=== PATIENT | female | born 1990 | race Caucasian/White ===

== ENCOUNTER → 2017-08-04 | Outpatient (CLI) | payer OTHER, SELFPAY | PROVIDERS: Family Provider Physician Assistant; Visit Provider Orthopaedic Surgery | DX: M25.511 Pain in right shoulder (principal) | CPT/HCPCS: 73030 ==

== ENCOUNTER → 2017-08-18 12:52 | Outpatient (CLI) | payer OTHER, SELFPAY ==
--- NOTE | 2017-08-18 13:02 | IR_ITS ---
MR shoulder RT w con, IR arthrogram shoulder RT HISTORY: Persistent right shoulder pain with limited range of motion ITS.REASON: PAIN IN RT SHOULDER ORDERING PHYSICIAN: Tang Floyd MD PATIENT AGE: 27 years COMPARISON: None TECHNIQUE: Following obtaining informed consent the patient was placed supine on the fluoroscopy table. Using standard technique under aseptic conditions with 1% buffered lidocaine 22-gauge spinal needle was inserted into the right shoulder joint and mixture of gadolinium, Isovue, and normal saline and percent lidocaine injected into the shoulder joint. There was a small amount contrast extravasation into the surrounding soft tissues. The patient tolerated procedure well without evidence of complication. Images were then obtained. Following this, patient was taken to the MRI suite where routine MRI arthrogram images were obtained. FINDINGS: There is no evidence of rotator cuff tear. There is thickening of the supraspinatus and infraspinatus tendons with increased T2 signal consistent with tendinopathy/tendinosis. No evidence of labral tear. The bicipital tendon is in place. No obvious glenohumeral ligament tear. No fracture or bone bruise. IMPRESSION: 1. No evidence of rotator cuff tear or labral tear. 2. Prominent thickening of the supraspinatus and infraspinatus tendons with increased T1 and T2 signal consistent with severe tendinopathy/tendinosis
== END ==
PROVIDERS: Family Provider Physician Assistant; PCP Physician Assistant; Visit Provider Orthopaedic Surgery
DX: M25.511 Pain in right shoulder (principal)
CPT/HCPCS: 73040; 73222; Q9967

== ENCOUNTER → 2017-10-19 15:12 | Outpatient (REF) | payer OTHER, SELFPAY ==
[2017-10-19 18:53] LABS: Basophils # 0.1 K/mm3 (0-0.2); Basophils % 0.7 % (0.1-2.0); Eosinophils # 0.3 K/mm3 (0.0-0.4); Hematocrit 41.8 % (37.0-47.0); Hemoglobin 13.5 g/dL (12.2-16.2); Lymphocytes # 2.1 K/mm3 (0.7-4.5); Lymphocytes % 35.1 K/mm3 (10-50); Mean Corpuscular HGB Conc 32.3 g/dL (31.8-35.4); Mean Corpuscular Hemoglobin 32.1 pg (27.0-31.2); Mean Corpuscular Volume 99.5 fl (81-99); Mean Platelet Volume 8.5 fl (7.4-10.4); Monocytes # 0.3 K/mm3 (0.1-1.0); Monocytes % 5.6 % (1.7-9.3); Neutrophils # 3.3 K/mm3 (1.8-7.8); Neutrophils % 53.5 % (37.0-80.0); Platelet Count 253 K/mm3 (142-424); White Blood Count 6.1 K/mm3 (4.8-10.8)
[2017-10-19 19:29] LABS: Alanine Aminotransferase 25 U/L (12-78); Albumin Level 4.1 gm/dL (3.4-5.0); Albumin/Globulin Ratio 1.2 (1.1-1.8); Alkaline Phosphatase 64 U/L (46-116); Anion Gap 11.4 mEq/L (5-15); Aspartate Amino Transferase 13 U/L (15-37); Bilirubin,Total 0.2 mg/dL (0.2-1.0); Blood Urea Nitrogen 15 mg/dL (7-18); Calcium 8.6 mg/dL (8.5-10.1); Carbon Dioxide 28 mmol/L (21.0-32.0); Chloride 103 mmol/L (98-107); Chol/HDL Ratio 2.4 (1-3.5); Cholesterol 167 mg/dL (140-200); Creatinine,Serum 0.72 mg/dL (0.55-1.02); Estimated Glomerular Filt Rate 99 ml/min (>60); GFR (African American) 119 ML/MIN (>60); Globulin 3.3 gm/dl (1.3-3.2); Glucose 75 mg/dL (74-106); HDL Cholesterol 69 mg/dL (29-89); LDL Cholesterol 89 mg/dL (0-130); Potassium 4.4 mmoL/L (3.5-5.1); Sodium 138 mmol/L (136-145); T4 (Thyroxine) 7.8 ug/dl (4.7-13.3); Thyroid Stimulating Hormone 2.32 uIU/ml (0.358-3.740); Total Protein,Serum 7.4 gm/dL (6.4-8.2); Triglycerides 44 mg/dL (30-200); VLDL Cholesterol 9 mg/dL (0-40)
[2017-10-19 20:12] LABS: HCG Qualitative, Serum Negative (Negative)
[2017-10-21 19:22] LABS: Vitamin D 25 Hydroxy 17.1 ng/mL (30.0-100.0)
== END ==
LOC: LAB 15:12
PROVIDERS: Visit Provider Physician Assistant
DX: R53.83 Other fatigue (principal)
CPT/HCPCS: 80053; 80061; 82652; 84436; 84443; 84703; 85025

== ENCOUNTER 2017-10-26 08:00 | Outpatient (RCR) | payer OTHER, SELFPAY | END 2017-10-26 08:05 | disposition home or self-care (01) | LOC: PT 08:00 | PROVIDERS: Family Provider Physician Assistant; PCP Physician Assistant; Visit Provider Orthopaedic Surgery | DX: M75.41 Impingement syndrome of right shoulder (principal); M67.911 Unspecified disorder of synovium and tendon, right shoulder | CPT/HCPCS: 97010; 97014; 97016; 97033; 97035; 97110; G0283 ==

== ENCOUNTER 2018-03-09 10:30 | Outpatient (RCR) | payer OTHER, SELFPAY ==
--- NOTE | 2018-02-07 09:51 | HMH.RHREAS ---
Rehab Reassessment Rehab OP Re-assessment Start: 02/07/18 09:36 Freq: Status: Active Protocol: Document 02/07/18 09:36 VASILE (Rec: 02/07/18 09:51 VASILE [id number]) Electronically Signed By Jack Sharif, PT 02/07/18 09:36 Rehab Re-assessment Subjective Subjective Pt reports 45% improvement since start of care. Objective Objective Notes AROM: WNL except for IRr 60 degrees MMT: -WNL except for R ER 4/5 -6/10 current, 7/10 at worst over past week, 5/10 at best over past week -Neuro WNL Assessment Progress Assessment Progressing as Expected Assessment Notes Pt has been seen for 5 visits to date. Attendance to PT visits limited secondary to time constraints with occupation. Pt experiences decreased symptoms when consistent with PT visits. Full AROM except or IR, full MMT except for ER. Pain continues to be most limiting factor. Patient goals met STG's Goals Not Met LTG's Plan Plan Continue with POC Frequency of Therapy 2x/week Duration of therapy 4weeks Time and Billing Re-Eval Time 15 Re-Eval Billing Units 1 PHYSICIAN CERTIFICATION: I certify the specified therapy services for Koby Zhang are required, authorized, and reviewed every 30 days.
== END 2018-03-09 10:31 | disposition home or self-care (01) ==
LOC: PT 10:30
PROVIDERS: Family Provider Physician Assistant; PCP Physician Assistant; Visit Provider Orthopaedic Surgery
DX: M75.41 Impingement syndrome of right shoulder (principal)
CPT/HCPCS: 97010; 97014; 97016; 97033; 97035; 97110; 97140; 97163; 97164; G0283

== ENCOUNTER → 2018-03-15 13:11 | Outpatient (REF) | payer OTHER, SELFPAY ==
[2018-03-15 18:47] LABS: Basophils % 0.8 % (0.1-2.0); Eosinophils # 0.2 K/mm3 (0.0-0.4); Eosinophils % 4.4 % (0.1-12.0); Hematocrit 41.3 % (37.0-47.0); Hemoglobin 13.3 g/dL (12.2-16.2); Lymphocytes % 30.2 K/mm3 (10-50); Mean Corpuscular HGB Conc 32.2 g/dL (31.8-35.4); Mean Corpuscular Hemoglobin 30.4 pg (27.0-31.2); Mean Corpuscular Volume 94.2 fl (81-99); Mean Platelet Volume 8.3 fl (7.4-10.4); Monocytes # 0.2 K/mm3 (0.1-1.0); Monocytes % 6.7 % (1.7-9.3); Neutrophils % 57.9 % (37.0-80.0); Platelet Count 210 K/mm3 (142-424); Red Blood Count 4.39 M/mm3 (4.20-5.40); Red Cell Distribution Width 12.6 % (11.5-17.5); White Blood Count 3.4 K/mm3 (4.8-10.8)
[2018-03-15 19:28] LABS: Alanine Aminotransferase 26 U/L (12-78); Albumin Level 4.1 gm/dL (3.4-5.0); Albumin/Globulin Ratio 1.2 (1.1-1.8); Alkaline Phosphatase 85 U/L (46-116); Anion Gap 14.2 mEq/L (5-15); Aspartate Amino Transferase 17 U/L (15-37); Bilirubin,Total 0.4 mg/dL (0.2-1.0); Blood Urea Nitrogen 11 mg/dL (7-18); Calcium 8.8 mg/dL (8.5-10.1); Carbon Dioxide 26 mmol/L (21.0-32.0); Chloride 105 mmol/L (98-107); Chol/HDL Ratio 3.7 (1-3.5); Cholesterol 235 mg/dL (140-200); Creatinine,Serum 0.89 mg/dL (0.55-1.02); Estimated Glomerular Filt Rate 77 ml/min (>60); GFR (African American) 94 ML/MIN (>60); Globulin 3.4 gm/dl (1.3-3.2); Glucose 58 mg/dL (74-106); HDL Cholesterol 63 mg/dL (29-89); LDL Cholesterol 164 mg/dL (0-130); Potassium 4.2 mmoL/L (3.5-5.1); Sodium 141 mmol/L (136-145); T4 (Thyroxine) 9.1 ug/dl (4.7-13.3); Thyroid Stimulating Hormone 2.71 uIU/ml (0.358-3.740); Total Protein,Serum 7.5 gm/dL (6.4-8.2); Triglycerides 39 mg/dL (30-200); VLDL Cholesterol 8 mg/dL (0-40)
[2018-03-15 19:43] LABS: C-Reactive Protein < 0.2 mg/L (0.0-0.9)
[2018-03-15 20:10] LABS: Erythrocyte Sedimentation Rate 13 mm/hr (0-20)
[2018-03-17 08:30] LABS: Hep A Ab, IgM Negative (Negative); Hepatitis B Core Antibody IgM Negative (Negative); Hepatitis B Surface Antigen Negative (Negative); RA Latex Turbid. <10.0 IU/mL (0.0-13.9)
[2018-03-17 14:21] LABS: Anti-Jo-1 <0.2 AI (0.0-0.9); Anti-Smith Antibody <0.2 AI (0.0-0.9); Antichromatin Antibodies <0.2 AI (0.0-0.9); Antiscleroderma-70 Antibodies <0.2 AI (0.0-0.9); RNP Antibodies 0.3 AI (0.0-0.9); Sjogren's Anti-SS-A <0.2 AI (0.0-0.9); Sjogren's Anti-SS-B <0.2 AI (0.0-0.9)
[2018-03-17 18:15] LABS: Hepatitis C Antibody 0.1 s/co ratio (0.0-0.9); Vitamin D 25 Hydroxy 46.8 ng/mL (30.0-100.0)
[2018-03-17 18:16] LABS: Anti-Centromere B Antibodies <0.2 AI (0.0-0.9); Anti-DNA (DS) Ab Qn <1 IU/mL (0-9); HIV Screen 4th Generation wRfx Non Reactive (Non Reactive)
[2018-03-19 20:32] LABS: Anti-Cyclic Citrullinated Pept 6 units (0-19)
== END ==
LOC: LAB 13:11
PROVIDERS: Visit Provider Physician Assistant
DX: D89.89 Other specified disorders involving the immune mechanism, not elsewhere classified (principal); R87.619 Unspecified abnormal cytological findings in specimens from cervix uteri; R53.83 Other fatigue; E55.9 Vitamin D deficiency, unspecified
CPT/HCPCS: 80053; 80061; 80074; 82652; 84436; 84443; 85025; 85651; 86140; 86200; 86225; 86235; 86431; 86703; G0432

== ENCOUNTER 2020-05-19 19:09 | Emergency (ER) | payer OTHER, SELFPAY ==
[2020-05-19 19:25] VITALS: BP 125/83; PULSE 55; RESP 14; TEMP 36.9; O2SAT 100; BMI 32.1
[2020-05-19 19:31] LABS: UTC Strep Screen (Rapid) Positive (Negative)
--- NOTE | 2020-05-19 19:42 | HMH.EDUTC ---
[facility] [place]ression: Strep throat Disposition: Home, Self-Care Condition on Discharge: Good Instructions: Strep Throat, DI for Strep Throat Additional Instructions: Drink plenty of fluids. Take tylenol or ibuprofen for pain or fever. Take the medications as directed. Follow up with your regular doctor. GO TO THE ER FOR ANY WORSENING SYMPTOMS Throw your tooth brush away and get a new one. Prescriptions: Ondansetron [Zofran 4mg ODT] 4 mg PO Q8HP PRN #10 tab.rapdis PRN Reason: Nausea [facility] Azithromycin [Z-Augustine 250mg Tab*] 250 mg PO UD DOSE PK #6 tab Transmission Status[facility] Referrals: Tatianna Almodovar PA [Primary Care Provider] - Forms: Work/School Release Time of Disposition: 19:46 Medical Decision Making - Medical Records Medical records reviewed: No: I reviewed the patient's medical records. - Gonzalo Inquiry Pt receiving controlled substance: No Vital Signs: 05/19/20 19:25 05/19/20 20:00 Temperature 98.5 F 98.5 F Temperature Source Oral Pulse Rate 55 L Pulse Rate [Right Brachial] 55 L Respiratory Rate 14 14 Blood Pressure 125/83 Blood Pressure [Right Arm] 125/83 Blood Pressure Mean [Right Arm] 97 Blood Pressure Source [Right Arm] Automatic Cuff Blood Pressure Position [Right Arm] Sitting 02 Sat by Pulse Oximetry 100 Oxygen Delivery Method Room Air - Lab Data Lab Results 05/19/20 19:29: Strep Scn Rapid Clinic Positive A Orders (Tests/Meds): ED MEDICATIONS Discontinued Medications Generic Name Dose Route Start Last Admin Trade Name Freq PRN Reason Stop Dose Admin Azithromycin 500 mg 05/19/20 19:42 05/19/20 19:51 Azithromycin 250mg Tablet PO 05/19/20 19:43 500 mg ONCE ONE Administration Protocol Ibuprofen 800 mg 05/19/20 19:47 05/19/20 19:51 Ibuprofen 400 Mg Tablet PO 05/19/20 19:48 800 mg ONCE ONE Administration [facility] [place] - General Stated complaint: SORE THROAT RIGHT SIDE Time Seen by Provider: 05/19/20 19:30 Mode of Arrival: Ambulatory Source of Information: Patient Limitations: No Limitations Description of Symptoms (Recalled from Triage Doc. by RN): PATIENT C/O SORE THROAT ON RIGHT SIDE X 2 DAYS HEENT Symptoms (Recalled from RN notes): Yes Resp Symptoms (Recalled from RN notes): No Skin Symptoms (Recalled from RN notes): No MS Symptoms (Recalled from RN notes): No Functional Status (Recalled from RN notes): WNL - History of Present Illness Provider Complaint: She c/o sore throat for the past 1 day. She also has had some chilling. - Related Data Home Medications Medication Instructions Recorded Confirmed albuterol sulfate 90 mcg/actuation 1 puff INHALATION Q6H 09/05/17 04/01/20 aerosol inhaler cetirizine 10 mg capsule 10 mg PO QDAY 09/05/17 04/01/20 fluticasone propionate 50 50 mcg INTRANASAL ONCE 09/05/17 04/01/20 mcg/actuation nasal spray,suspension mometasone-formoterol HFA 200 2 puff INHALATION BID 09/05/17 04/01/20 mcg-5 mcg/actuation aerosol inhaler montelukast 10 mg tablet 10 mg PO QHS 09/05/17 04/01/20 omalizumab 150 mg subcutaneous 150 mg SQ Q4W 12/11/18 04/01/20 solution beclomethasone dipropionate 80 INHALATION 04/01/20 04/01/20 mcg/actuation HFA breath activated aerosol Previous Rx's Medication Instructions Recorded prednisone 20 mg tablet 20 mg PO BID #10 tab 10/29/19 triamcinolone acetonide 0.025 % 1 applic TOPICAL BID #80 g 03/04/20 topical cream cholecalciferol (vitamin D3) 25 25 mcg PO DAILY #90 cap 03/07/20 mcg (1,000 unit) capsule ergocalciferol (vitamin D2) 1,250 1,250 mcg PO DAILY #14 cap 03/07/20 mcg (50,000 unit) capsule phentermine 37.5 mg tablet 37.5 mg PO DAILY #30 tab 05/14/20 Azithromycin [Z-Augustine 250mg Tab*] 250 mg PO UD DOSE PK #6 tab 05/19/20 Ondansetron [Zofran 4mg ODT] 4 mg PO Q8HP PRN #10 tab.rapdis 05/19/20 Allergies
[2020-05-19 20:00] VITALS: BP 125/83; PULSE 55; RESP 14; TEMP 36.9; O2SAT 100
== END 2020-05-19 20:01 | disposition home or self-care (01) ==
PROVIDERS: Emergency Provider Nurse Practitioner Family; PCP Physician Assistant
DX: J02.0 Streptococcal pharyngitis (principal); J45.909 Unspecified asthma, uncomplicated
CPT/HCPCS: 87880; 99201

== ENCOUNTER 2020-08-21 11:22 | Emergency (ER) | payer OTHER, SELFPAY ==
[2020-08-21 11:23] VITALS: BP 113/77; PULSE 82; RESP 14; TEMP 36.2; O2SAT 99; BMI 34.3
--- NOTE | 2020-08-21 12:30 | HMH.EDUTC ---
[facility] [place]: Exposure to COVID-19 virus Disposition: Home, Self-Care Condition on Discharge: Good Instructions: Preventing the Spread of Coronavirus Discharge Instructions Additional Instructions: *Monitor Temp, Over the counter Motrin or Tylenol as directed/as needed Tylenol every 4 hours and Motrin every 6 hours (as long as your family doctor has told you that you can take it) for fever or pain. and straight to ER if unable to lower temp less than 101.0 after medication given Follow up IMMEDIATELY for new or worsening symptoms or no Noticeable improvement over the next 48-72 hours. 911 for difficulty breathing or swallowing You were tested for today for COVID19 your test result should be back in the next 24-48 hours, you may call to the [facility] to see if your test results are back in the next 48 hours [phone] [facility] hours are 9am-9pm You was given a handout with instructions for Self Quarantine and Self isolation for while you wait on test results and what to do if they are positive If you are positive the Health Dept will be contacting you also Referrals: Tatianna Almodovar PA [Primary Care Provider] - Time of Disposition: 12:31 Medical Decision Making - Medical Records Medical records reviewed: No: I reviewed the patient's medical records. - Gonzalo Inquiry Pt receiving controlled substance: No Vital Signs: 08/21/20 11:23 08/21/20 12:33 Temperature 97.1 F L 97.1 F L Temperature Source Oral Oral Pulse Rate 82 Pulse Rate [Right] 82 Respiratory Rate 14 14 Blood Pressure 113/77 Blood Pressure [Right Arm] 113/77 Blood Pressure Mean [Right Arm] 89 02 Sat by Pulse Oximetry 99 [facility] [place] - General Stated complaint: covid exposure Time Seen by Provider: 08/21/20 12:30 Description of Symptoms (Recalled from Triage Doc. by RN): pt request COVID test pt has no symptoms HEENT Symptoms (Recalled from RN notes): No Resp Symptoms (Recalled from RN notes): No Skin Symptoms (Recalled from RN notes): No MS Symptoms (Recalled from RN notes): No Functional Status (Recalled from RN notes): wnl - History of Present Illness Provider Complaint: Her grandmother was diagnosed with covid-19 yesterday. She denies any symptoms, but she would like to be tested for covid. - Related Data Home Medications Medication Instructions Recorded Confirmed albuterol sulfate 90 mcg/actuation 1 puff INHALATION Q6H 09/05/17 08/19/20 aerosol inhaler cetirizine 10 mg capsule 10 mg PO QDAY 09/05/17 08/19/20 fluticasone propionate 50 50 mcg INTRANASAL ONCE 09/05/17 08/19/20 mcg/actuation nasal spray,suspension mometasone-formoterol HFA 200 2 puff INHALATION BID 09/05/17 08/19/20 mcg-5 mcg/actuation aerosol inhaler montelukast 10 mg tablet 10 mg PO QHS 09/05/17 08/19/20 omalizumab 150 mg subcutaneous 150 mg SQ Q4W 12/11/18 08/19/20 solution beclomethasone dipropionate 80 INHALATION 04/01/20 08/19/20 mcg/actuation HFA breath activated aerosol Previous Rx's Medication Instructions Recorded triamcinolone acetonide 0.025 % 1 applic TOPICAL BID #80 g 03/04/20 topical cream cholecalciferol (vitamin D3) 25 25 mcg PO DAILY #90 cap 03/07/20 mcg (1,000 unit) capsule Ondansetron [Zofran 4mg ODT] 4 mg PO Q8HP PRN #10 tab.rapdis 05/19/20 ergocalciferol (vitamin D2) 1,250 See Rx Instructions .ROUTE 06/06/20 mcg (50,000 unit) capsule .COMPLEX #14 cap fluconazole 150 mg tablet 150 mg PO Q3D 0 Days #2 tab 06/30/20 phentermine 37.5 mg tablet 37.5 mg PO DAILY #30 tab 07/30/20 meloxicam 7.5 mg tablet 7.5 mg PO DAILY #90 tab 08/11/20 methylprednisolone 4 mg tablets in 4 mg PO PER PKG DIR 6 Days #21 tab 08/11/20 a dose pack Allergies Allergy/AdvReac Type Severity Reaction Status Date / Time No Known Allergies Allergy Verified 08/21/20 12:05 - Worker's Comp Is this a Worker's Comp case?: No Is this an H Worker's Comp?: No Is this a [place] Worker's Comp?: No [facility] Histo
[2020-08-21 12:33] VITALS: BP 113/77; PULSE 82; RESP 14; TEMP 36.2
== END 2020-08-21 12:35 | disposition home or self-care (01) ==
PROVIDERS: Emergency Provider Nurse Practitioner Family; PCP Physician Assistant
DX: Z20.822 Contact with and (suspected) exposure to COVID-19 (principal); J45.909 Unspecified asthma, uncomplicated
CPT/HCPCS: 99202; G0463; U0003

== ENCOUNTER → 2021-01-19 15:05 | Outpatient (CLI) | payer OTHER, SELFPAY ==
[2021-01-19 16:59] LABS: Alanine Aminotransferase 18 U/L (12-78); Albumin Level 4.2 g/dl (3.5-5.0); Albumin/Globulin Ratio 1.5 (1.1-1.8); Alkaline Phosphatase 75 U/L (38-126); Anion Gap 11.4 mEq/L (5-15); Aspartate Amino Transferase 27 U/L (14-36); Basophils % 0.5 % (0.1-2.0); Bilirubin,Total 0.5 mg/dl (0.2-1.3); Blood Urea Nitrogen 15 mg/dl (7-17); Calcium 8.9 mg/dl (8.4-10.2); Carbon Dioxide 25 mmol/L (22.0-30.0); Chloride 107 mmol/L (98-107); Chol/HDL Ratio 2.8 (1-3.5); Cholesterol 194 mg/dl (140-200); Eosinophils # 0.2 K/mm3 (0.0-0.4); Eosinophils % 2.5 % (0.1-12.0); Estimated Glomerular Filt Rate 100 ml/min (>60); GFR (African American) 121 ML/MIN (>60); Globulin 2.8 g/dL (1.3-3.2); Glucose 85 mg/dl (74-100); HDL Cholesterol 69 mg/dl (40-60); Hematocrit 38.8 % (37.0-47.0); Hemoglobin 12.8 g/dL (12.2-16.2); Lymphocytes # 1.5 K/mm3 (0.7-4.5); Lymphocytes % 21.3 % (10-50); Mean Corpuscular HGB Conc 33.1 g/dL (31.8-35.4); Mean Corpuscular Hemoglobin 31.1 pg (27.0-31.2); Mean Corpuscular Volume 94.2 fl (81-99); Mean Platelet Volume 8.4 fl (7.4-10.4); Monocytes # 0.4 K/mm3 (0.1-1.0); Monocytes % 5.4 % (1.7-9.3); Neutrophils # 5.1 K/mm3 (1.8-7.8); Neutrophils % 70.3 % (37.0-80.0); Platelet Count 246 K/mm3 (142-424); Potassium 4.4 mmoL/L (3.5-5.1); Red Blood Count 4.12 M/mm3 (4.20-5.40); Red Cell Distribution Width 12.6 % (11.5-17.5); Sodium 139 mmol/L (136-145); Triglycerides 51 mg/dl (30-150); VLDL Cholesterol 10 mg/dL (0-40); White Blood Count 7.2 K/mm3 (4.8-10.8)
[2021-01-19 17:10] LABS: Direct LDL Cholesterol 108.85 mg/dL (100-129)
[2021-01-19 17:16] LABS: Free T4 (Free Thyroxine) 1.32 ng/dl (0.78-2.19)
[2021-01-19 17:30] LABS: Thyroid Stimulating Hormone 2.11 uIU/mL (0.465-4.68)
[2021-01-19 18:28] LABS: 25-OH Vitamin D, Total 28.7 ng/mL (30-100)
[2021-01-19 18:30] LABS: Amphetamine/Metha Screen,Urine Negative ng/ml (<1000); Barbiturates Screen,Urine Negative ng/ml (<200)
[2021-01-19 18:31] LABS: Benzodiazepines Screen,Urine Negative ng/ml (<200)
[2021-01-19 18:33] LABS: Cannabinoid Screen,Urine Negative ng/ml (<50)
[2021-01-19 18:34] LABS: Cocaine Screen,Urine Negative ng/ml (<300)
[2021-01-19 18:35] LABS: Methadone Screen,Urine Negative ng/ml (<300); Opiate Screen,Urine Negative ng/ml (<300)
[2021-01-19 18:36] LABS: Phencyclidine Screen,Urine Negative ng/ml (<25)
[2021-01-21 09:46] LABS: HIV Screen 4th Generation wRfx Non Reactive (Non Reactive); Hep A Ab, IgM Negative (Negative); Hepatitis B Core Antibody IgM Negative (Negative); Hepatitis B Surface Antigen Negative (Negative); Hepatitis C Antibody <0.1 s/co ratio (0.0-0.9)
[2021-01-21 12:11] LABS: Rapid Plasma Reagin Ab Titer Non Reactive (NonRea<1:1)
[2021-01-21 21:55] LABS: Neisseria gonorrhoeae, NAA Negative (Negative)
== END ==
PROVIDERS: Visit Provider Physician Assistant
DX: Z00.00 Encounter for general adult medical examination without abnormal findings (principal); D89.89 Other specified disorders involving the immune mechanism, not elsewhere classified; J45.909 Unspecified asthma, uncomplicated; M06.9 Rheumatoid arthritis, unspecified; E55.9 Vitamin D deficiency, unspecified; R53.83 Other fatigue; R68.89 Other general symptoms and signs; Z20.2 Contact with and (suspected) exposure to infections with a predominantly sexual mode of transmission; Z79.899 Other long term (current) drug therapy
CPT/HCPCS: 80053; 80061; 80074; 80305; 82306; 84439; 84443; 85025; 86592; 86703; 87491; 87591; G0432

== ENCOUNTER → 2021-02-23 14:54 | Outpatient (CLI) | payer OTHER, SELFPAY ==
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
== END ==
PROVIDERS: PCP Physician Assistant; Visit Provider Physician Assistant
DX: M54.2 Cervicalgia (principal)
CPT/HCPCS: 72052

== ENCOUNTER → 2021-03-10 12:56 | Outpatient (CLI) | payer OTHER, SELFPAY ==
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
== END ==
PROVIDERS: PCP Physician Assistant; Visit Provider Physician Assistant
DX: M54.2 Cervicalgia (principal); V89.2XXA Person injured in unspecified motor-vehicle accident, traffic, initial encounter
CPT/HCPCS: 72141; 76376

== ENCOUNTER 2021-04-14 11:37 | Emergency (ER) | payer OTHER, SELFPAY ==
[2021-04-14 12:50] VITALS: BP 138/74; PULSE 91; RESP 21; TEMP 36.8; O2SAT 100; BMI 36.8
--- NOTE | 2021-04-14 13:35 | HMH.EDUTC ---
[facility] [place] Clinical Impression: Sinusitis Qualifiers: Sinusitis location: unspecified location Chronicity: unspecified Qualified Code(s): J32.9 - Chronic sinusitis, unspecified Disposition: Home, Self-Care Condition on Discharge: Good Instructions: Sinusitis, DI for Sinusitis, Amoxicillin and Clavulanic Acid Additional Instructions: *Monitor Temp, Over the counter Motrin or Tylenol as directed/as needed Tylenol every 4 hours and Motrin every 6 hours (as long as your family doctor has told you that you can take it) for fever or pain. and straight to ER if unable to lower temp less than 101.0 after medication given *Warm salt water gargles may help to soothe the throat *Throat Lozenges *Warm fluids like tea with honey may help to soothe the throat *Sleep elevated *Humidifier/Vaporizer Take medication as prescribed Follow up IMMEDIATELY for new or worsening symptoms or no Noticeable improvement over the next 48-72 hours. 911 for difficulty breathing or swallowing You were tested for today for COVID19 your test result should be back in the next 24-48 hours, You was given [facility]out [facility] your results should be available on there later today if you do not have internet or trouble accessing you can call at [phone] You was given a handout with instructions for Self Quarantine and Self isolation for while you wait on test results and what to do if they are positive If you are positive the Health Dept will be contacting you also Make sure to take your Vitamins Vit. C Vit D and Zinc if you can take them Prescriptions: Amoxicillin/Potassium Clav [Augmentin 875-125 Tablet] 1 tab PO Q12H 10 Days #20 tab Transmission Status: Pending to [facility] Referrals: Tatianna Almodovar PA [Primary Care Provider] - As needed Forms: Work/School Release Time of Disposition: 13:50 Medical Decision Making - Gonzalo Inquiry Pt receiving controlled substance: No Gonzalo was queried for this patient: No Vital Signs: 04/14/21 12:50 04/14/21 14:14 Temperature 98.3 F 98.3 F Temperature Source Oral Pulse Rate 91 H Pulse Rate [Right Brachial] 91 H Respiratory Rate 21 21 Blood Pressure 138/74 Blood Pressure [Right Arm] 138/74 Blood Pressure Mean [Right Arm] 95 Blood Pressure Source [Right Arm] Automatic Cuff Blood Pressure Position [Right Arm] Sitting 02 Sat by Pulse Oximetry 100 Oxygen Delivery Method Room Air - Lab Data Lab Results 04/14/21 13:38: Tst Clinic Negative Orders (Tests/Meds): ED MEDICATIONS Discontinued Medications Generic Name Dose Route Start Last Admin Trade Name Rachel PRN Reason Stop Dose Admin Methylprednisolone Sodium Succinate 125 mg 04/14/21 13:47 04/14/21 14:07 Methylprednisolone Sod Succ 125mg Vial IM 04/14/21 13:48 125 mg ONCE ONE Administration ORDERS Category Date Time Status Covid-19 Nasal PCR ([facility]) Routine Lab 04/14/21 12:58 Received Medical Decision Narrative: Patient states that she has taken solumedrol injection in the past without reactions or complications [facility] [place] - General Stated complaint: sore throat, cough, soa, headache, runny nose Time Seen by Provider: 04/14/21 13:35 Mode of Arrival: Ambulatory Source of Information: Patient Limitations: No Limitations Description of Symptoms (Recalled from Triage Doc. by RN): PATIENT C/O SINUS PRESSURE, WATERY EYES, AND SOA SINCE TUESDAY HEENT Symptoms (Recalled from RN notes): Yes Resp Symptoms (Recalled from RN notes): No Skin Symptoms (Recalled from RN notes): No MS Symptoms (Recalled from RN notes): No Functional Status (Recalled from RN notes): WNL - History of Present Illness Provider Complaint: Patient state that she thinks she has a sinus infection State that she started about a week or so ago with sinus pain and pressure that has come and gone State that about 3-4 days ago it started getting worse and now having pressure like feeling be
[2021-04-14 14:00] LABS: UTC Pregnancy Test, Urine Negative (Negative)
[2021-04-14 14:14] VITALS: BP 138/74; PULSE 91; RESP 21; TEMP 36.8; O2SAT 100
== END 2021-04-14 14:18 | disposition home or self-care (01) ==
PROVIDERS: Emergency Provider Nurse Practitioner; PCP Physician Assistant
DX: J32.9 Chronic sinusitis, unspecified (principal); J45.909 Unspecified asthma, uncomplicated
CPT/HCPCS: 81025; 96372; 99202; G0463; U0003

== ENCOUNTER → 2021-07-31 13:59 | Outpatient (CLI) | payer OTHER, SELFPAY ==
--- NOTE | 2021-07-31 13:59 | US_ITS ---
PROCEDURE: US KIDNEY CLINICAL INDICATION: Right-sided flank pain COMPARISON: No exams were available for comparison FINDINGS: The right kidney is [id number]. No hydronephrosis, cortical thinning, or renal mass or perinephric fluid collection is evident. The left kidney is [id number]. No hydronephrosis, cortical thinning, or renal mass or perinephric fluid collection is evident. IMPRESSION: Unremarkable bilateral renal ultrasound Dictated by: Toni Allen MD 07/31/2021 17:27 Toni Allen MD in [place] 07/31/2021 17:27
== END ==
PROVIDERS: PCP Physician Assistant; Visit Provider Physician Assistant
DX: R10.9 Unspecified abdominal pain (principal)
CPT/HCPCS: 76770

== ENCOUNTER → 2022-07-26 11:01 | Outpatient (CLI) | payer OTHER, SELFPAY ==
[2022-07-27 05:09] LABS: HSV 1 IgG, Type Spec <0.91 index (0.00-0.90); HSV 2 IgG, Type Spec 5.16 index (0.00-0.90)
[2022-07-27 13:25] LABS: Rapid Plasma Reagin Ab Titer Non Reactive (NonRea<1:1)
[2022-07-31 23:03] LABS: Hep A Ab, IgM NEGATIVE; Hepatitis B Core Antibody IgM NEGATIVE; Hepatitis B Surface Antigen NEGATIVE; Hepatitis C Antibody <0.1
[2022-07-31 23:04] LABS: HIV Screen 4th Generation wRfx NON REACTIVE
== END ==
PROVIDERS: PCP Physician Assistant; Visit Provider Nurse Practitioner Obstetrics & Gynecology
DX: Z72.51 High risk heterosexual behavior (principal); Z11.4 Encounter for screening for human immunodeficiency virus [HIV]
CPT/HCPCS: 36415; 80074; 86592; 86695; 86703; 86790; G0432

== ENCOUNTER → 2023-04-07 15:52 | Outpatient (CLI) | payer BC, SELFPAY ==
[2023-04-07 13:41] LABS: Basophils % 0.3 % (0.1-2.0); Eosinophils # 0.1 K/mm3 (0.0-0.4); Eosinophils % 1.5 % (0.1-12.0); Hematocrit 40.4 % (37.0-47.0); Hemoglobin 12.8 g/dL (12.2-16.2); Lymphocytes # 1.6 K/mm3 (0.7-4.5); Lymphocytes % 27.9 % (10-50); Mean Corpuscular HGB Conc 31.6 g/dL (31.8-35.4); Mean Corpuscular Hemoglobin 30.3 pg (27.0-31.2); Mean Platelet Volume 8.2 fl (7.4-10.4); Monocytes # 0.4 K/mm3 (0.1-1.0); Monocytes % 6.4 % (1.7-9.3); Neutrophils # 3.8 K/mm3 (1.8-7.8); Neutrophils % 63.9 % (37.0-80.0); Platelet Count 283 K/mm3 (142-424); Red Blood Count 4.21 M/mm3 (4.20-5.40); Red Cell Distribution Width 13.7 % (11.5-17.5); White Blood Count 5.9 K/mm3 (4.8-10.8)
[2023-04-07 14:07] LABS: Erythrocyte Sedimentation Rate 20 mm/hr (0-20)
[2023-04-07 16:16] LABS: 25-OH Vitamin D, Total 37.2 ng/mL (30-100)
[2023-04-07 20:04] LABS: Alanine Aminotransferase 27 U/L (12-78); Albumin Level 4.6 g/dl (3.5-5.0); Albumin/Globulin Ratio 1.4 (1.1-1.8); Alkaline Phosphatase 93 U/L (38-126); Anion Gap 17.1 mEq/L (5-15); Aspartate Amino Transferase 31 U/L (14-36); Bilirubin,Total 0.2 mg/dl (0.2-1.3); Blood Urea Nitrogen 17 mg/dl (7-17); Calcium 8.8 mg/dl (8.4-10.2); Carbon Dioxide 22 mmol/L (22.0-30.0); Chloride 107 mmol/L (98-107); Chol/HDL Ratio 3.2 (1-3.5); Cholesterol 225 mg/dl (140-200); Estimated Glomerular Filt Rate 84 ml/min (>60); GFR (African American) 101 ML/MIN (>60); Globulin 3.4 g/dL (1.3-3.2); Glucose 86 mg/dl (74-100); HDL Cholesterol 71 mg/dl (40-60); Potassium 4.1 mmoL/L (3.5-5.1); Sodium 142 mmol/L (136-145); Triglycerides 110 mg/dl (30-150); VLDL Cholesterol 22 mg/dL (0-40)
[2023-04-07 20:15] LABS: C-Reactive Protein 2.3 mg/L (0-4); Direct LDL Cholesterol 115.58 mg/dL (100-129)
[2023-04-07 20:35] LABS: Thyroid Stimulating Hormone 1.84 uIU/mL (0.465-4.68)
[2023-04-09 10:44] LABS: RA Latex Turbid. <10.0 IU/mL (<14.0)
[2023-04-09 12:15] LABS: Anti-Cyclic Citrullinated Pept 5 units (0-19)
[2023-04-11 21:27] LABS: Anti-Centromere B Antibodies <0.2 AI (0.0-0.9); Anti-DNA (DS) Ab Qn <1 IU/mL (0-9); Anti-Jo-1 <0.2 AI (0.0-0.9); Anti-Smith Antibody <0.2 AI (0.0-0.9); Antichromatin Antibodies <0.2 AI (0.0-0.9); Antiscleroderma-70 Antibodies <0.2 AI (0.0-0.9); RNP Antibodies 0.2 AI (0.0-0.9); Sjogren's Anti-SS-A <0.2 AI (0.0-0.9); Sjogren's Anti-SS-B <0.2 AI (0.0-0.9)
== END ==
LOC: LAB.DROPOF 15:52
PROVIDERS: PCP Physician Assistant; Visit Provider Physician Assistant
DX: D89.89 Other specified disorders involving the immune mechanism, not elsewhere classified (principal); E55.9 Vitamin D deficiency, unspecified
CPT/HCPCS: 80053; 80061; 82306; 84443; 85025; 85651; 86140; 86200; 86225; 86235; 86431

== ENCOUNTER 2024-01-04 10:46 | Outpatient (CLI) | payer BC, SELFPAY ==
--- NOTE | 2024-01-04 10:51 | XR_ITS ---
FINAL REPORT CLINICAL HISTORY: right ankle cyst COMPARISON: None FINDINGS: RIGHT ANKLE 3 views of the right ankle were obtained. There is no acute fracture or dislocation. The mortise is intact. Visualized joint spaces are normally aligned. Soft tissues are unremarkable. IMPRESSION: No acute bony abnormality. Reviewed, Interpreted and Dictated by Buck Alfaro MD Transcribed by Judith Navarro Authenticated and [facility]
== END 2024-01-04 23:59 | disposition home or self-care (01) ==
LOC: RAD 10:47
PROVIDERS: PCP Physician Assistant; Visit Provider Physician Assistant
DX: M25.571 Pain in right ankle and joints of right foot (principal); M85.671 Other cyst of bone, right ankle and foot
CPT/HCPCS: 73610

== ENCOUNTER 2024-02-01 08:47 | Outpatient (CLI) | payer BC, SELFPAY | END 2024-02-01 23:59 | disposition home or self-care (01) | LOC: RAD 08:51 | PROVIDERS: PCP Physician Assistant; Visit Provider Physician Assistant | DX: D48.7 Neoplasm of uncertain behavior of other specified sites (principal) ==

== ENCOUNTER 2024-02-17 07:23 | Outpatient (CLI) | payer BC, SELFPAY ==
--- NOTE | 2024-02-17 07:23 | MR_ITS ---
FINAL REPORT CLINICAL HISTORY: right ankle cyst, lateral sided ankle knot with swelling. put marker on spot FINDINGS: Multiplanar MR imaging of the right ankle was performed without contrast. There is mild bone marrow edema in the posterior calcaneal tuberosity. No osteochondral lesion is identified. The ligaments are intact without evidence of injury. There is distal Achilles peritendinitis. There is a small amount of fluid in the retrocalcaneal bursa, may represent bursitis. There is mild posterior tibial and peroneus longus tenosynovitis. No significant joint effusion is seen. The musculature is intact. There is no evidence of soft tissue mass or cyst. IMPRESSION: No soft tissue mass or cyst. Possible retrocalcaneal bursitis. Tenosynovitis as above. Reviewed, Interpreted and Dictated by Keagan Sharma III, MD Transcribed by Janny Cosme Authenticated and [facility]
== END 2024-02-17 23:59 | disposition home or self-care (01) ==
LOC: RAD 07:23
PROVIDERS: PCP Physician Assistant; Visit Provider Physician Assistant
DX: M85.671 Other cyst of bone, right ankle and foot (principal)
CPT/HCPCS: 73721

== ENCOUNTER 2024-09-27 15:30 | Outpatient (CLI) | payer BC, SELFPAY ==
[2024-09-27 18:02] LABS: HIV Combo POSITIVE (Negative)
[2024-09-27 18:12] LABS: Hepatitis C Ab Qual. W/ RFX NEGATIVE (Negative)
[2024-09-27 19:16] LABS: HIV Combo Retest POSITIVE (Negative)
[2024-09-27 22:17] LABS: RPR W/RFX Titers Nonreactive (Nonreactive)
[2024-09-28 07:24] LABS: Hepatitis B Surface Antigen Negative (Negative); Rubella Antibodies, IgG 3.61 index (Immune >0.99)
[2024-09-29 08:12] LABS: HIV Screen 4th Generation wRfx Non Reactive (Non Reactive)
[2024-09-29 09:23] LABS: Neisseria gonorrhoeae, NAA Negative (Negative)
== END 2024-09-27 23:59 | disposition home or self-care (01) ==
LOC: LAB 15:32
PROVIDERS: PCP Physician Assistant; Visit Provider Nurse Practitioner Obstetrics & Gynecology
DX: Z34.01 Encounter for supervision of normal first pregnancy, first trimester (principal); Z3A.01 Less than 8 weeks gestation of pregnancy; Z86.19 Personal history of other infectious and parasitic diseases
CPT/HCPCS: 36415; 86592; 86703; 86762; 86803; 87340; 87389; 87491; 87591; G0432

== ENCOUNTER 2024-12-26 12:38 | Outpatient (CLI) | payer BC, SELFPAY ==
--- NOTE | 2024-12-26 13:00 | US_ITS ---
PROCEDURE: US OB /MATERNAL DETAIL CLINICAL INDICATION: schedule in 5 weeks, 20 week anatomy scan COMPARISON: No exams were available for comparison FINDINGS: Transabdominal sonographic images of the pelvis were obtained. From her established due date she is 20 weeks 5 days. Single viable intrauterine gestation. Cephalic position. Initially the placenta appeared low lying and would suggest repeat scan at 28 weeks Placenta: Anteriorplacenta grade 1. There is an average amount of fluid. The cervix appears satisfactory. Closed and measuring 4.51 cm in length. Complete survey performed and was unremarkable on the submitted images as in PACS. No discrete anomalies identified on survey imaging by technologist. Active fetus. Three-vessel cord with satisfactory umbilical cord insertion. 4- chamber heart noted. Situs, aortic arch, LVOT, RVOT, three-vessel view appear normal. Survey of brain & ventricles Unremarkable. Cerebellum, thalamus, choroid plexus, cisterna magna appear normal. Face and neck survey unremarkable. Profile, nasion, lips and nose appeared normal. Diaphragm and chest views unremarkable. Abdomen: Both kidneys noted and unremarkable. Stomach and bladder noted and satisfactory. Spine: Survey of the spine satisfactory with no anomalies identified nor imaged. Cervical, thoracic, lower spine appear normal. Both arms and legs noted. Amniotic Fluid: Adequate. MVP 3.44 cm Measurements: Average ultrasound age 21weeks 0 days. Estimated due date by ultrasound age 0905/08/2025. Estimated weight 403g BPD = 21weeks 0 days HC = 20weeks 4days AC = 21weeks 5days FL = 20weeks 5days Growth Percentile= 69 Heart Rate = 140bpm Cerebellum = 19weeks 2days Humerus = 20weeks 6days HC/AC is 1.08 FL/BPD is 0.69 FL/AC is 0.2 IMPRESSION: 1. Viable fetus in the cephalic presentation with an anterior low-lying placenta grade 1. 2. The fluid is within normal limits with an MVP 3.44 cm. 3. Anatomical scan is normal but the exam was difficult due to position. Suggest repeat scan at 28 weeks to look at the placenta and anatomy. 4. biometry is consistent with the dates. Dictated by: Viktor Jackman MD 12/26/2024 14:11 Viktor Jackman MD in [place] 12/26/2024 14:11
== END 2024-12-26 23:59 | disposition home or self-care (01) ==
LOC: RAD 12:39
PROVIDERS: PCP Physician Assistant; Visit Provider Nurse Practitioner Obstetrics & Gynecology
DX: Z34.92 Encounter for supervision of normal pregnancy, unspecified, second trimester (principal); Z3A.20 20 weeks gestation of pregnancy
CPT/HCPCS: 76811

== ENCOUNTER 2025-02-14 12:30 | Outpatient (CLI) | payer BC, SELFPAY ==
--- OUTSIDE RECORDS SUMMARY | 2025-02-14 12:34 | XMS_ITS | Encounter Summary ---
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 Name Role Phone Unavailable Primary Care Provider Unavailabl e Reason for Referral * Consultation (Routine) - New Request Specialty Diagnoses / Procedures Referred By Contac t Referred To Contact Behavioral Health / Psychiatry Diagnoses MDD (major depressive disorder), recurrent episode, mild (HCC) Susan Zhang APRN [id number] [place] [address] Phone: tel: Referral ID Status Reason Start Date Expiration Date Visits Requested Visits Authorized [id number] New Request Specialty Services Required 05/10/2024 05/10/2025 1 1 Encounter Details Date Type Department Care Team (Late st Contact Info) Description 05/10/2024 Outside Orders [facility] Central Scheduling [address] [place] [address] Susan Zhang APRN [id number] [place] [address] MDD (major depressive disorder), recurrent episode, mild (HCC) (Primary Dx) Social History Tobacco Use Types Packs/Day Years Used Date Smoking Tobacco: Never Assessed Food Insecurity Answer Date Recorded Food run out past 12 months Not on file 04/16 Food did not last past 12 months Not on file 05/10/2024 Employment Answer Date Recorded Help finding and keeping a job Not on file 0 05/10/2024 Family and Community Support Answer Yannick e Recorded Help with Day to Day Activities Not on file 05/10/2024 Feeling Lonely or Isolated Not on file 05/10 Educational Attainment Answer Date Robert rded Speak language other than [place] at home Not on file 05/10/2024 Want help with school or training Not on file 05/10/2024 Substance Use Answer Date Recorded Used prescription meds for non-medical reasons N ot on file 05/10/2024 Used illegal drugs past 12 months Not on file 05/10/2024 Comments Unknown Sex and Gender Information Value Date Recorded Sex Assigned at Not on file Legal Sex Female 8:46 AM CDT Gender Identity Not on file Sexual Orientation Not on file documented as of this encounter Plan of Treatment Scheduled Referrals Name Type Priority Associated Diagnoses Order Schedule Ambulatory referral to Behavioral Health Outpatient Referral Routine MDD (major depressive disorder), recurrent episode, mild (HCC) Expected: 05/10/2024, Expires: 05/10/2025 documented as of this encounter Visit Diagnoses Diagnosis MDD (major depressive disorder), recurrent episode, mild (HCC)- Primary documented in this encounter
--- OUTSIDE RECORDS SUMMARY | 2025-02-14 12:34 | XMS_ITS | Clinical Summary ---
Author Organization [facility] ([place], [place], [place], [place]) Address [address] [place] [address] Care Team Providers Care Puppet Maker Name Role Phone Unavailable Primary Care Provider Unavailabl e Social History Tobacco Use Types Packs/Day Years [...] Date Robert rded Speak language other than Tajik at home Not on file 05/10/2024 Want [...] on file Sexual Orientation Not on file Plan of Treatment Health Maintenance Due Date Last Done Comments Tobacco Cessation Counseling and Screening (12+) 2004 HIV Screening 2007 Hepatitis C Screening 2010 DTAP/TDAP/TD VACCINES (1 - Tdap) 2011 Pap Smear 2013 COVID-19 VACCINE (2023-2 5 season) 2024 07/10/2021, 12/19/2020, 11/21/2020 Influenza Vaccine (#1) 2025 Pneumococcal Vaccine: 0-49 Years Aged Out No longer eligible b ased on patient's age to complete this topic
--- OUTSIDE RECORDS SUMMARY | 2025-02-14 12:34 | XMS_ITS | Encounter Summary ---
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
--- OUTSIDE RECORDS SUMMARY | 2025-02-14 12:34 | XMS_ITS | Referral Summary ---
Author Organization [employer] ([place], [place], [place], [place]) Address [address] [place] [address] Care Team Providers Care Monument Mason Name Role Phone Unavailable Primary Care Provider [...] Date Robert rded Speak language other than Croatian at home Not on file 05/10/2024 Want [...] Orientation Not on file Plan of Treatment Not on file
--- OUTSIDE RECORDS SUMMARY | 2025-02-14 12:34 | XMS_ITS | Encounter Summary ---
Author Organization [employer] ([place], [place], [place], [place]) Address [address] [place] [address] Care Team Providers Care Ob Gyn Name Role Phone Unavailable Primary Care Provider Unavailabl e Encounter Details Date Type Department Care Team (Late st Contact Info) Description 05/10/2024 Outside Orders [facility] Central Scheduling [address] [place] [address] Susan Zhang APRN [address] [place] [address] MDD (major depressive disorder), recurrent [...] Date Robert rded Speak language other than Telugu at home Not on file 05/10/2024 Want [...]
--- OUTSIDE RECORDS SUMMARY | 2025-02-14 12:34 | XMS_ITS | Clinical Summary ---
Author Organization Healthcare Address [address] [place] [address] Care Team Providers Care Heat Plant Specialist Name Role Phone Tatianna Almodovar Primary Care Provider [phone] Family History Medical History Relation Name Comments Conversions - Other Other 1 Arterios clerosis Bipolar depression Other 2 Asthma Other 3 Bipolar disorder Other 4 Cardiac disorder Other 5 Cataracts Other 6 COPD Other 7 Coronary artery disease Other 8 RODY disease Other 9 Glaucoma Other 10 Hypertension Other 11 Kidney disease Other 12 Other cancer Other 13 Breast cancer Other 14 Prostate cancer Other 15 Conversions - Other Other 16 malignan t neoplasm of skin Migraines Other 17 Osteoarthritis Other 18 Osteogenesis imperfecta Other 19 Rheum arthritis Other 20 Relation Name Status Comments Other 1 Other 2 Other 3 Other 4 Other 5 Other 6 Other 7 Other 8 Other 9 Other 10 Other 11 Other 12 Other 13 Other 14 Other 15 Other 16 Other 17 Other 18 Other 19 Other 20 Social History Tobacco Use Types Packs/Day Years Used Date Smoking Tobacco: Never Alcohol Use Standard Drinks/Week Comments No 0 (1 standard drink = 0.6 oz pur e alcohol) Comments Unknown Sex and Gender Information Value Date Recorded Sex Assigned at Not on file Legal Sex Female 6:48 PM EDT Gender Identity Not on file Sexual Orientation Not on file Last Filed Vital Signs Vital Sign Reading Time Taken Comments Blood Pressure 101/50 09/25/2018 8:34 AM EST Pulse 64 09/25/2018 8:34 AM EST Temperature 36.8 C (98.2 F) 09/25/2018 8:34 AM EST Respiratory Rate 14 09/25/2018 8:34 AM EST Oxygen Saturation - - Inhaled Oxygen Concentration - - Weight 85.5 kg (188 lb 7.9 oz) 09/25/2018 8:34 A M EST Height 162.6 cm (5' 4 ) 09/25/2018 8:34 AM EST Body Mass Index 32.35 09/25/2018 8:34 AM EST Plan of Treatment Health Maintenance Due Date Last Done Comments [facility]-Depression Screening 1992 [facility]-Infant/Child/Adol SDOH Screenings 1992 [facility]-Varicella Vaccines (1 of 2 - 13+ 2-dose series) 2005 HPV Vaccines (1 - 3-dose series) 2007 [facility]- SDOH Screenings 2010 [facility]-Adult SDOH Screenings 2010 [facility]-DTaP,Tdap,and Td Vaccines (1 - Tdap) 2011 [facility]-Hepatitis B Vaccines (1 of 3 - 19+ 3-dose series) 2011 [facility]-Pap Smear 2013 [facility]-Cervical Cancer Screening 2022 UKY-HPV/Cotest 2022 [id number] Vaccine ( season) 2024 07/10/2021, 12/19/2020, 11/21/2020 UKY-Influenza Vaccine (#1) 2025 [facility]Y-Zoster Vaccines (1 of 2) 2042 [facility]-HIV Screening Completed 07/05/2024 [facility]-Hepatitis C Screening Completed 07/05/2024 [facility]Y-HIB Vaccines Aged Out No longer e ligible based on patient's age to complete this topic [facility]Y-Hepatitis A Vaccines Aged Out No longer eligible based on patient's age to complete this topic UKY-IPV Vaccines Aged Out No longer e ligible based on patient's age to complete this topic UKY-Pneumococcal Vaccine: Pediatrics (0 to 5 Years) and At-Risk Patients (6 to 49 Years) Aged Out No longer eligible b ased on patient's age to complete this topic UKY-Rotavirus Vaccines Aged Out No lo nger eligible based on patient's age to complete this topic Procedures Procedure Name Priority Date/Time Associated Diagnosis Comments HEPATITIS C ANTIBODY W/REFLEX TO HCV QUANT PCR Routine 07/05/2024 10:30 AM EST Encounter for general adult medical examination w/o abnormal findings HIV 1/2 ANTIBODY/ANTIGEN SCREEN WITH REFLEX TO HIV I/II DIFFERENTIATION Routine 07/05/2024 10:30 AM EST Encounter for general adult medical examination w/o abnormal findings from Last 3 Months or Most Recently Relevant to Health Maintenance Results * HIV 1 & 2 Antibody/Antigen Screen (07/05/2024 10:30 AM EST) HIV 1 & 2 Antibody/Antigen Screen Non Reactive Non Reactive 07/05/2024 4:37 PM EST [facility] Comment:Screening for HIV 1 & 2 antibodies, and P24 antigen is NONREACTIVE. No confirmatory testing is required. Blood Venous blood specimen / Unknown Venipuncture / Unknown 07/05/2024 10:30 AM EST 07/05/2024 10:30 AM EST Tatianna VELOZ LAB BLOOD ORDERABLES Final Resu lt Performing Organization Address [facility] Co de Phone Number [facility] [address] [place] [address] * Hepatitis C antibody (07/05/2024 10:30 AM EST) Hepatitis C Antibody Negative Negative 07/05/2024 5:05 PM EST [facility] Blood Venous blood specimen / Unknown Venipuncture / Unknown 07/05/2024 10:30 AM EST 07/05/2024 10:30 AM EST us Tatianna VELOZ LAB BLOOD ORDERABLES Final Resu lt Performing Organization Address City/[facility] Co de Phone Number [facility] [address] [place] [address] from Last 3 Months or Most Recently Relevant to Health Maintenance Insurance ANTHEM Care Teams Heat Plant Specialist Relationship Specialty Start Date End Date Tatianna Almodovar PA [address] [place] [address] PCP - General 12/26/20
[2025-02-14 14:41] LABS: Glucose 1 Hour 133 mg/dL (74-100)
[2025-02-14 14:57] LABS: Hematocrit 32.4 % (37.0-47.0); Hemoglobin 11.1 g/dL (12.2-16.2); Immature Granulocytes % 1.0 %; Mean Corpuscular HGB Conc 34.3 g/dL (31.8-35.4); Mean Corpuscular Hemoglobin 32.5 pg (27.0-31.2); Mean Corpuscular Volume 94.7 fl (81-99); Nucleated Red Blood Cells % 0 %; Platelet Count 283 K/mm3 (142-424); Red Blood Count 3.42 M/mm3 (4.20-5.40); Red Cell Distribution Width-SD 46.8 fL; White Blood Count 10.0 K/mm3 (4.8-10.8)
[2025-02-15 08:53] LABS: RPR W/RFX Titers Nonreactive (Nonreactive)
== END 2025-02-14 23:59 | disposition home or self-care (01) ==
LOC: LAB 12:32
PROVIDERS: PCP Physician Assistant; Visit Provider Obstetrics & Gynecology
DX: Z34.82 Encounter for supervision of other normal pregnancy, second trimester (principal)
CPT/HCPCS: 36415; 82947; 85025; 86592

== ENCOUNTER 2025-03-04 10:47 | Outpatient (CLI) | payer BC, SELFPAY ==
--- OUTSIDE RECORDS SUMMARY | 2025-03-05 12:00 | XMS_ITS | Encounter Summary ---
Author Organization [employer] ([place], [place], [place], [place]) Address [address] [place] [address] Care Team Providers Care Beef Grader Name Role Phone Unavailable Primary Care Provider Unavailabl e Encounter Details Date Type Department Care Team (Late st Contact Info) Description 05/10/2024 Outside Orders [facility] Central Scheduling [address] [place] [address] Susan Zhang APRN [address] [place] [address] MDD (major depressive disorder), recurrent [...] Date Robert rded Speak language other than Omani at home Not on file 05/10/2024 Want [...]
--- OUTSIDE RECORDS SUMMARY | 2025-03-05 12:00 | XMS_ITS | Referral Summary ---
Author Organization [employer] ([place], [place], [place], [place]) Address [address] [place] [address] Care Team Providers Care Controller Coal Or Ore Name Role Phone Unavailable Primary Care Provider [...] Date Robert rded Speak language other than Czech at home Not on file 05/10/2024 Want [...]
--- OUTSIDE RECORDS SUMMARY | 2025-03-05 12:00 | XMS_ITS | Clinical Summary ---
Author Organization Healthcare Address [address] [place] [address] Care Team Providers Care Documentation Clerk Name Role Phone Tatianna Almodovar Primary Care Provider Family History Medical History Relation Name Comments [...] Date Last Done Comments [facility]Y-Depression Screening 1992 [facility]-/Child/Adol SDOH Screenings 1992 [facility]-Varicella Vaccines (1 of 2 - 13+ 2-dose series) 2005 HPV Vaccines (1 - 3-dose series) 2007 [facility]- SDOH Screenings 2010 [facility]-Adult SDOH Screenings 2010 [facility]-DTaP,Tdap,and Td Vaccines (1 - Tdap) 2011 [facility]-Hepatitis B Vaccines (1 of 3 - 19+ 3-dose series) 2011 [facility]-Pap Smear 2013 [facility]-Cervical Cancer Screening 2022 [facility]-HPV/Cotest 2022 [id number] Vaccine ( season) 2024 07/10/2021, 12/19/2020, 11/21/2020 [...] Reactive Non Reactive 07/05/2024 4:37 PM EST [facility] Comment:Screening for HIV 1 & 2 antibodies, and P24 antigen is NONREACTIVE. No confirmatory testing is required. Blood Venous blood specimen / Unknown Venipuncture / Unknown 07/05/2024 10:30 AM EST 07/05/2024 10:30 AM EST Tatianna VELOZ LAB BLOOD ORDERABLES Final Resu lt Performing Organization Address [facility] Co de Phone Number [facility] [address] [place] [address] * Hepatitis C antibody (07/05/2024 10:30 AM EST) Hepatitis C Antibody Negative Negative 07/05/2024 5:05 PM EST [facility] Blood Venous blood specimen / Unknown Venipuncture / Unknown 07/05/2024 10:30 AM EST 07/05/2024 10:30 AM EST us Tatianna VELOZ LAB BLOOD ORDERABLES Final Resu lt Performing Organization Address City/[facility] Co de Phone Number [facility] [address] [place] [address] from Last 3 Months or Most Recently Relevant to Health Maintenance Insurance ANTHEM Care Teams Documentation Clerk Relationship Specialty Start Date End Date Tatianna Almodovar PA [address] [place] [address] PCP - General 12/26/20
--- OUTSIDE RECORDS SUMMARY | 2025-03-05 12:00 | XMS_ITS | Encounter Summary ---
Author Organization [employer] ([place], [place], [place], [place]) Address [address] [place] [address] Care Team Providers Care Senior Vice President Name Role Phone Unavailable Primary Care Provider Unavailabl e Reason for Referral * Consultation (Routine) - New Request Specialty Diagnoses / Procedures Referred By Contac t Referred To Contact Behavioral Health / Psychiatry Diagnoses MDD (major depressive disorder), recurrent episode, mild (HCC) Susan Zhagn APRN [address] [place] [address] Phone: tel: Referral ID Status Reason Start Date Expiration Date Visits Requested Visits Authorized [id number] New Request Specialty Services Required 05/10/2024 05/10/2025 1 1 Encounter Details Date Type Department Care Team (Late st Contact Info) Description 05/10/2024 Outside Orders [facility] Central Scheduling [address] [place] [address] Susan Zhang APRN [address] [place] [address] MDD (major depressive disorder), recurrent [...] Date Robert rded Speak language other than Belarusian at home Not on file 05/10/2024 Want [...]
--- OUTSIDE RECORDS SUMMARY | 2025-03-05 12:00 | XMS_ITS | Encounter Summary ---
Author Organization [employer] ([place], [place], [place], [place]) Address [address] [place] [address] Care Team Providers Care Stoneworking Sander Name Role Phone Unavailable Primary Care Provider Unavailabl e Encounter Details Date Type Department Care Team (Late st Contact Info) Description 05/10/2024 Outside Orders [facility] Central Scheduling [address] [place] [address] Susan Zhang APRN [address] [place], [place] [id number] Social History Tobacco Use Types Packs/Day Years [...] Date Robert rded Speak language other than Wolof at home Not on file 05/10/2024 Want [...]
--- OUTSIDE RECORDS SUMMARY | 2025-03-05 12:00 | XMS_ITS | Clinical Summary ---
Author Organization [facility] Address [address] [place] [address] Care Team Providers Care Time Study Statistician Name Role Phone Provider, No Known Primary Care Provider Unavail able Allergies No known active allergies Medications ProAir HFA 108 (90 Base) MCG/ACT inhaler Inhale See Admin Instructions. Inhale 2 puffs by mouth every 4 to 6 hours as needed 1 Active Flovent HFA 110 MCG/ACT inhaler Inhale 2 puffs 2 (Two) Times a Day. 1 Active meloxicam (MOBIC) 7.5 MG tablet Take 7.5 mg by mouth Daily. 1 Active montelukast (SINGULAIR) 10 MG tablet TAKE 1 TABLET BY MOUTH AT BEDTIME FOR ALLERGIES 3 Active valACYclovir (VALTREX) 1000 MG tablet Take 1 tablet by mouth Daily. 3 Active cetirizine (zyrTEC) 10 MG tablet Take 1 tablet by mouth Daily. 4 Active Social History Tobacco Use Types Packs/Day Years Used Date Smoking Tobacco: Never Passive Smoke Exposure: Never Smokeless Tobacco: Never Tobacco Cessation:Counseling Given: Not Answered Alcohol Use Standard Drinks/Week Comments Never 0 (1 standard drink = 0.6 oz pur e alcohol) Estimated Date of Delivery Comme nts Yes 05/10/2025 Sex and Gender Information Value Date Recorded Sex Assigned at Not on file Legal Sex Female 8:13 AM EST Gender Identity Not on file Sexual Orientation Not on file Last Filed Vital Signs Vital Sign Reading Time Taken Comments Blood Pressure 118/76 11/11/2024 11:20 AM EDT Pulse 76 11/11/2024 11:20 AM EDT Temperature 36.2 C (97.1 F) 11/11/2024 11:20 AM EDT Respiratory Rate 16 11/11/2024 11:20 AM EDT Oxygen Saturation 99% 11/11/2024 11:20 AM EDT Inhaled Oxygen Concentration - - Weight 113 kg (249 lb) 11/11/2024 11:20 AM EDT Height 162.6 cm (5' 4 ) 11/11/2024 11:20 AM EDT Body Mass Index 42.74 11/11/2024 11:20 AM EDT Plan of Treatment Health Maintenance Due Date Last Done Comments ANNUAL PHYSICAL 1992 Annual Gynecologic Pelvic an d Breast Exam 1992 TDAP/TD VACCINES (1 - Tdap) 2011 COVID-19 Vaccine ( - 2023-2 5 season) 2024 07/10/2021, 12/19/2020, 11/21/2020 INFLUENZA VACCINE 05/15/2025 RSV Vaccine - Adults (1 - 1-dose 75+ series) 2067 HEPATITIS C SCREENING Completed 07/05/2024 , 07/05/2024 Pneumococcal Vaccine 0-49 Aged Out No longer eligible based on patient's age to complete this topic Insurance [employer] [facility] DALE WALKER NON PAR Member Subscriber Plan / Payer (Ef fective 2023-Present) Name:Koby Zhang Relation to Subscriber:Self Name:Koby Zhang Payer ID:[id number] (NAIC) Type:Not on file Address: [address] [place] [id number] [employer] PPO Care Teams Time Study Statistician Relationship Specialty Start Date End Date Provider, [place] [address] PCP - General 09/28/21
--- OUTSIDE RECORDS SUMMARY | 2025-03-05 12:00 | XMS_ITS | Clinical Summary ---
Author Organization [employer] ([place], [place], [place], [place]) Address [address] [place] [address] Care Team Providers Care Wine Merchant Name Role Phone Unavailable Primary Care Provider [...] Date Robert rded Speak language other than Romansh at home Not on file 05/10/2024 Want [...]
== END 2025-03-04 23:59 | disposition home or self-care (01) ==
LOC: LAB.DROPOF 03-05 11:59
PROVIDERS: PCP Nurse Practitioner Obstetrics & Gynecology; Visit Provider Nurse Practitioner Obstetrics & Gynecology
DX: Z34.90 Encounter for supervision of normal pregnancy, unspecified, unspecified trimester (principal)
CPT/HCPCS: 87086

== ENCOUNTER 2025-04-04 13:11 | Outpatient (CLI) | payer BC, SELFPAY ==
--- NOTE | 2025-04-04 13:16 | US_ITS ---
PROCEDURE: US OB BIOPHYSICAL PROFILE CLINICAL INDICATION: needs to evaluate for LGA COMPARISON: US US OB /MATERNAL DETAIL from 12/26/2024 FINDINGS: Transabdominal sonographic images of the uterus were obtained. From her established due date she is 34weeks 6days. The following parameters are obtained: Viable Fetus in the cephalic presentation with an anterior placenta grade 2. Average ultrasound age is 35weeks 4days Estimated weight 2,697g, 5 lb 15 oz The cervix measures 2.87 cm. Measurements: heart Rate = 155bpm BPD = 36weeks 3days, 88 percentile HC = 36weeks 0 days, 41 percentile AC = 36weeks 2days, 88 percentile FL = 33weeks 4days, 13 percentile HC/AC is 0.99 FL/BPD is 0.72 FL/AC is 0.2 66 percentile Amniotic fluid index: 11.95cm, MVP 5.38 cm. Qualitative AFV:2 Breathing movements: 2 Gross Body Movements: 2 Tone: 2 Biophysical profile score: 8 No obvious anomalies evident.Kidneys, stomach, bladder, four-chamber heart, three-vessel cord appear normal. IMPRESSION: 1. Viable fetus in the cephalic presentation with an anterior placenta grade 2. 2. The fluid is within normal limits with an amniotic fluid index 11.95 cm, MVP 5.38 cm. 3. Biophysical profile is 8/8 with good breathing movement and movement seen. 4. There has been good interval growth with the fetus currently 66 percentile. 5. Limited anatomical scan appears normal. Dictated by: Viktor Jackman MD 04/04/2025 17:10 Viktor Jackman MD in [place] 04/04/2025 17:10
--- OUTSIDE RECORDS SUMMARY | 2025-04-04 13:33 | XMS_ITS | Clinical Summary ---
Author Organization [employer] ([place], [place], [place], [place]) Address [address] [place] [address] Care Team Providers Care Industrial Relations Representative Name Role Phone Unavailable Primary Care Provider [...] Date Robert rded Speak language other than Liberian at home Not on file 05/10/2024 Want [...]
--- OUTSIDE RECORDS SUMMARY | 2025-04-04 13:33 | XMS_ITS | Encounter Summary ---
Author Organization [employer] ([place], [place], [place], [place]) Address [address] [place] [address] Care Team Providers Care Pharmacy Grad Intern Name Role Phone Unavailable Primary Care Provider Unavailabl e Encounter Details Date Type Department Care Team (Late st Contact Info) Description 05/10/2024 Outside Orders [facility] Central Scheduling [address] [place] [address] Susan Zhang APRN [address] [place], [place] [id number] Social History Tobacco Use Types Packs/Day Years [...] Date Robert rded Speak language other than Nepalese at home Not on file 05/10/2024 Want [...]
--- OUTSIDE RECORDS SUMMARY | 2025-04-04 13:33 | XMS_ITS | Encounter Summary ---
Author Organization [employer] ([place], [place], [place], [place]) Address [address] [place] [address] Care Team Providers Care Fitter And Turner Name Role Phone Unavailable Primary Care Provider Unavailabl e Encounter Details Date Type Department Care Team (Late st Contact Info) Description 05/10/2024 Outside Orders [facility] Central Scheduling [address] [place] [address] Susan Zhang APRN [address] [place] [address] MDD (major depressive disorder), recurrent [...] Date Robert rded Speak language other than Setswana at home Not on file 05/10/2024 Want [...]
--- OUTSIDE RECORDS SUMMARY | 2025-04-04 13:33 | XMS_ITS | Clinical Summary ---
Author Organization Healthcare Address [address] [place] [address] Care Team Providers Care 5Th Grade Teacher Name Role Phone Tatianna Almodovar Primary Care Provider [phone] Family History Medical History Relation Name Comments [...] of 2 - 13+ 2-dose series) 2005 [facility]- SDOH Screenings 2010 [facility]-Adult SDOH Screenings 2010 [facility]Y-DTaP,Tdap,and Td Vaccines (1 - Tdap) 2011 [facility]Y-Hepatitis B Vaccines (1 of 3 - 19+ 3-dose series) 2011 [facility]Y-Pap Smear 2013 HPV Vaccines (1 - 3-dose SCDM series) 2019 [facility]Y-Cervical Cancer Screening 2022 [facility]Y-HPV/Cotest 2022 [id number] Vaccine ( season) 2024 07/10/2021, 12/19/2020, 11/21/2020 [...] Reactive Non Reactive 07/05/2024 4:37 PM EST [facility] Comment:Screening for HIV 1 & 2 antibodies, and P24 antigen is NONREACTIVE. No confirmatory testing is required. Blood Venous blood specimen / Unknown Venipuncture / Unknown 07/05/2024 10:30 AM EST 07/05/2024 10:30 AM EST Tatianna VELOZ LAB BLOOD ORDERABLES Final Resu lt Performing Organization Address [facility] Co de Phone Number [facility] [address] [place] [address] * Hepatitis C antibody (07/05/2024 10:30 AM EST) Hepatitis C Antibody Negative Negative 07/05/2024 5:05 PM EST [facility] Blood Venous blood specimen / Unknown Venipuncture / Unknown 07/05/2024 10:30 AM EST 07/05/2024 10:30 AM EST Tatianna VELOZ LAB BLOOD ORDERABLES Final Resu lt Performing Organization Address City/[facility]/ZIP Co de Phone Number [facility] [address] [place] [address] from Last 3 Months or Most Recently Relevant to Health Maintenance Insurance ANTHEM Care Teams 5Th Grade Teacher Relationship Specialty Start Date End Date Tatianna Almodovar PA [address] [place] [address] PCP - General 12/26/20
--- OUTSIDE RECORDS SUMMARY | 2025-04-04 13:33 | XMS_ITS | Clinical Summary ---
Author Organization [facility] Address [address] [place] [address] Care Team Providers Care Flagman Name Role Phone Provider, No Known Primary [...] patient's age to complete this topic Insurance [employer] NON PAR Member Subscriber Plan / Payer (Ef fective 2023-Present) Name:Koby Zhang Relation to Subscriber:Self Name:Koby Zhang Payer ID:[id number] (NAIC) Type:Not on file Address: [address] PPO Member Subscriber Plan / Payer (Ef fective 2023-Present) Name:Vicente Koby Relation to Subscriber:Self Name:Koby Zhang Payer ID:[id number] (NAIC) Type:Not on file Address: [address] [place] [id number] Care Teams Flagman Relationship Specialty Start Date End Date Provider, [place] [address] PCP - General 09/28/21
--- OUTSIDE RECORDS SUMMARY | 2025-04-04 13:33 | XMS_ITS | Encounter Summary ---
Author Organization [employer] ([place], [place], [place], [place]) Address [address] [place] [address] Care Team Providers Care Nut Chopper Name Role Phone Unavailable Primary Care Provider Unavailabl e Reason for Referral * Consultation (Routine) - New Request Specialty Diagnoses / Procedures Referred By Contac t Referred To Contact Behavioral Health / Psychiatry Diagnoses MDD (major depressive disorder), recurrent episode, mild (HCC) Susan Zhang APRN [address] [place] [address] Phone: tel: Referral ID Status Reason Start Date Expiration Date Visits Requested Visits Authorized [id number] New Request Specialty Services Required 05/10/2024 05/10/2025 1 1 Encounter Details Date Type Department Care Team (Late st Contact Info) Description 05/10/2024 Outside Orders [facility] Central Scheduling [address] [place] [address] Susan Zhang APRN [address] [place] [address] MDD (major depressive disorder), recurrent [...] Date Robert rded Speak language other than Yi at home Not on file 05/10/2024 Want [...]
--- OUTSIDE RECORDS SUMMARY | 2025-04-04 13:33 | XMS_ITS | Referral Summary ---
Author Organization [employer] ([place], [place], [place], [place]) Address [address] [place] [address] Care Team Providers Care Industrial Electrical Engineer Name Role Phone Unavailable Primary Care Provider [...] Date Robert rded Speak language other than Vietnamese at home Not on file 05/10/2024 Want [...]
== END 2025-04-04 23:59 | disposition home or self-care (01) ==
LOC: RAD 13:12
PROVIDERS: PCP Nurse Practitioner Obstetrics & Gynecology; Visit Provider Nurse Practitioner Obstetrics & Gynecology
DX: O36.63X0 Maternal care for excessive fetal growth, third trimester, not applicable or unspecified (principal); Z3A.34 34 weeks gestation of pregnancy
CPT/HCPCS: 76816; 76819

== ENCOUNTER 2025-04-18 08:20 | Outpatient (CLI) | payer BC, SELFPAY ==
--- OUTSIDE RECORDS SUMMARY | 2025-04-19 11:15 | XMS_ITS | Encounter Summary ---
Author Organization [employer] ([place], [place], [place], [place]) Address [address] [place] [address] Care Team Providers Care Dianeticist Name Role Phone Unavailable Primary Care Provider Unavailabl e Reason for Referral * Consultation (Routine) - New Request Specialty Diagnoses / Procedures Referred By Contac t Referred To Contact Behavioral Health / Psychiatry Diagnoses MDD (major depressive disorder), recurrent episode, mild (HCC) Susan Zhang APRN [address] [place] [address] Phone: tel: Referral ID Status Reason Start Date Expiration Date Visits Requested Visits Authorized [id number] New Request Specialty Services Required 05/10/2024 05/10/2025 1 1 Encounter Details Date Type Department Care Team (Late st Contact Info) Description 05/10/2024 Outside Orders [facility] Central Scheduling [address] [place] [address] Susan Zhang APRN [address] [place] [address] MDD (major depressive disorder), recurrent [...] Date Robert rded Speak language other than Moldovan at home Not on file 05/10/2024 Want [...]
--- OUTSIDE RECORDS SUMMARY | 2025-04-19 11:15 | XMS_ITS | Clinical Summary ---
Author Organization [employer] ([place], [place], [place], [place]) Address [address] [place] [address] Care Team Providers Care Client Services Associate Name Role Phone Unavailable Primary Care Provider [...] Date Robert rded Speak language other than Serbian at home Not on file 05/10/2024 Want [...] Tdap) 2011 Pap Smear 2013 COVID-19 VACCINE (4 - 2024-2 6 season) 2025 07/10/2021, 12/19/2020, 11/21/2020 Influenza Vaccine (#1) 2025 Pneumococcal Vaccine: 0-49 Years Aged Out No longer eligible b ased on patient's age to complete this topic
--- OUTSIDE RECORDS SUMMARY | 2025-04-19 11:15 | XMS_ITS | Referral Summary ---
Author Organization [employer] ([place], [place], [place], [place]) Address [address] [place] [address] Care Team Providers Care Middleware Consultant Name Role Phone Unavailable Primary Care Provider [...] Date Robert rded Speak language other than Citizen Of [place] at home Not on file 05/10/2024 Want [...]
--- OUTSIDE RECORDS SUMMARY | 2025-04-19 11:15 | XMS_ITS | Clinical Summary ---
Author Organization Healthcare Address [address] [place] [address] Care Team Providers Care Trim Mounter Name Role Phone Tatianna Almodovar Primary Care Provider [phone] Family History Medical History Relation Name Comments [...] 2019 [facility]-Cervical Cancer Screening 2022 [facility]Y-HPV/Cotest 2022 [id number] Vaccine ( season) 2024 07/10/2021, 12/19/2020, 11/21/2020 [...] Reactive Non Reactive 07/05/2024 4:37 PM EST [facility] Comment:Screening for HIV 1 & 2 antibodies, and P24 antigen is NONREACTIVE. No confirmatory testing is required. Blood Venous blood specimen / Unknown Venipuncture / Unknown 07/05/2024 10:30 AM EST 07/05/2024 10:30 AM EST Tatianna VELOZ LAB BLOOD ORDERABLES Final Resu lt Performing Organization Address [facility] Co de Phone Number [facility] [address] [place] [address] * Hepatitis C antibody (07/05/2024 10:30 AM EST) Hepatitis C Antibody Negative Negative 07/05/2024 5:05 PM EST [facility] Blood Venous blood specimen / Unknown Venipuncture / Unknown 07/05/2024 10:30 AM EST 07/05/2024 10:30 AM EST Tatianna VELOZ LAB BLOOD ORDERABLES Final Resu lt Performing Organization Address City/[facility]/ZIP Co de Phone Number [facility] [address] [place] [address] from Last 3 Months or Most Recently Relevant to Health Maintenance Insurance ANTHEM Care Teams Trim Mounter Relationship Specialty Start Date End Date Tatianna Almodovar PA [address] [place] [address] PCP - General 12/26/20
--- OUTSIDE RECORDS SUMMARY | 2025-04-19 11:15 | XMS_ITS | Encounter Summary ---
Author Organization [employer] ([place], [place], [place], [place]) Address [address] [place] [address] Care Team Providers Care Prospect Manager Name Role Phone Unavailable Primary Care Provider Unavailabl e Encounter Details Date Type Department Care Team (Late st Contact Info) Description 05/10/2024 Outside Orders [facility] Central Scheduling [address] [place] [address] Susan Zhang APRN [address] [place] [address] MDD (major depressive disorder), recurrent [...]
--- OUTSIDE RECORDS SUMMARY | 2025-04-19 11:15 | XMS_ITS | Encounter Summary ---
Author Organization [employer] ([place], [place], [place], [place]) Address [address] [place] [address] Care Team Providers Care Loom Changer Name Role Phone Unavailable Primary Care Provider Unavailabl e Encounter Details Date Type Department Care Team (Late st Contact Info) Description 05/10/2024 Outside Orders [facility] Central Scheduling [address] [place] [address] Susan Zhang APRN [address] [place], [place] [id number] Social History Tobacco Use Types Packs/Day Years [...] Date Robert rded Speak language other than Bhutanese at home Not on file 05/10/2024 Want [...]
--- OUTSIDE RECORDS SUMMARY | 2025-04-19 11:15 | XMS_ITS | Clinical Summary ---
Author Organization [facility] Address [address] [place] [address] Care Team Providers Care Phlebotomist Medical Lab Assistant Name Role Phone Provider, No Known Primary [...] ID:[id number] (NAIC) Type:Not on file Address: [phone] PPO Member Subscriber Plan / Payer (Ef fective 2023-Present) Name:Vicente Koby Relation to Subscriber:Self Name:Koby Zhang Payer ID:[id number] (NAIC) Type:Not on file Address: [address] [place] [phone] Care Teams Phlebotomist Medical Lab Assistant Relationship Specialty Start Date End Date Provider, [place] [address] PCP - General 09/28/21
== END 2025-04-18 23:59 | disposition home or self-care (01) ==
LOC: LAB.DROPOF 04-19 11:12
PROVIDERS: PCP Obstetrics & Gynecology; Visit Provider Obstetrics & Gynecology
DX: O99.210 Obesity complicating pregnancy, unspecified trimester (principal); A60.00 Herpesviral infection of urogenital system, unspecified
CPT/HCPCS: 86403

== ENCOUNTER 2025-04-25 10:41 | Outpatient (CLI) | payer BC, SELFPAY ==
--- OUTSIDE RECORDS SUMMARY | 2025-04-25 10:56 | XMS_ITS | Clinical Summary ---
Author Organization Healthcare Address [address] [place] [address] Care Team Providers Care Food Order Delivery Runner Name Role Phone Tatianna Almodovar Primary Care Provider [phone] Family History Medical History Relation Name Comments [...] 2019 [facility]-Cervical Cancer Screening 2022 [facility]Y-HPV/Cotest 2022 [id number] Vaccine ( season) 2025 07/10/2021, 12/19/2020, 11/21/2020 UKY-Influenza Vaccine (#1) 2025 [...] Reactive Non Reactive 07/05/2024 4:37 PM EST [facility] Comment:Screening for HIV 1 & 2 antibodies, and P24 antigen is NONREACTIVE. No confirmatory testing is required. Blood Venous blood specimen / Unknown Venipuncture / Unknown 07/05/2024 10:30 AM EST 07/05/2024 10:30 AM EST Tatianna VELOZ LAB BLOOD ORDERABLES Final Resu lt Performing Organization Address [facility] Co de Phone Number [facility] [address] [place] [address] * Hepatitis C antibody (07/05/2024 10:30 AM EST) Hepatitis C Antibody Negative Negative 07/05/2024 5:05 PM EST [facility] Blood Venous blood specimen / Unknown Venipuncture / Unknown 07/05/2024 10:30 AM EST 07/05/2024 10:30 AM EST Tatianna VELOZ LAB BLOOD ORDERABLES Final Resu lt Performing Organization Address City/[facility]/ZIP Co de Phone Number [facility] [address] [place] [address] from Last 3 Months or Most Recently Relevant to Health Maintenance Insurance ANTHEM Care Teams Food Order Delivery Runner Relationship Specialty Start Date End Date Tatianna Almodovar PA [address] [place] [address] PCP - General 12/26/20
--- OUTSIDE RECORDS SUMMARY | 2025-04-25 10:56 | XMS_ITS | Clinical Summary ---
Author Organization [facility] Address [address] [place] [address] Care Team Providers Care Rack Cleaner Name Role Phone Provider, No Known Primary [...] - Tdap) 2011 COVID-19 Vaccine ( - 2024-2 6 season) 2025 07/10/2021, 12/19/2020, 11/21/2020 INFLUENZA VACCINE 05/15/2025 RSV [...] ID:[id number] (NAIC) Type:Not on file Address: [address] PPO Member Subscriber Plan / Payer (Ef fective 2023-Present) Name:Vicente Koby Relation to Subscriber:Self Name:Koby Zhang Payer ID:[id number] (NAIC) Type:Not on file Address: [address] [place] [id number] Care Teams Rack Cleaner Relationship Specialty Start Date End Date Provider, [place] [address] PCP - General 09/28/21
--- NOTE | 2025-04-25 11:01 | HMH.PHAINT1 ---
Pharmacy Intervention Comments: MEDICATION RECONCILIATION COMPLETED ON PATIENT USING EXTERNAL FILL HISTORY FROM PHARMACY. -KATIE YU, CHUCKD
[2025-04-25 11:56] LABS: Hematocrit 35.4 % (37.0-47.0); Hemoglobin 12.2 g/dL (12.2-16.2); Immature Granulocytes % 1.0 %; Mean Corpuscular HGB Conc 34.5 g/dL (31.8-35.4); Mean Corpuscular Hemoglobin 32.5 pg (27.0-31.2); Mean Corpuscular Volume 94.4 fl (81-99); Nucleated Red Blood Cells % 0 %; Platelet Count 258 K/mm3 (142-424); Red Blood Count 3.75 M/mm3 (4.20-5.40); Red Cell Distribution Width-SD 43.8 fL; White Blood Count 11.6 K/mm3 (4.8-10.8)
[2025-04-25 11:59] VITALS: BP 132/87; PULSE 93; RESP 18; TEMP 36.8; O2SAT 97; BMI 45.6
[2025-04-25 12:04] LABS: Alanine Aminotransferase 18 U/L (12-78); Albumin Level 3.7 g/dl (3.5-5.0); Albumin/Globulin Ratio 1.2 (1.1-1.8); Alkaline Phosphatase 133 U/L (38-126); Anion Gap 10.1 mEq/L (5-15); Aspartate Amino Transferase 27 U/L (14-36); Bilirubin,Total 0.4 mg/dl (0.2-1.3); Blood Urea Nitrogen 7 mg/dl (7-17); Calcium 9.0 mg/dl (8.4-10.2); Carbon Dioxide 22 mmol/L (22.0-30.0); Chloride 106 mmol/L (98-107); Creatinine,Serum 0.50 mg/dl (0.52-1.04); Estimated Glomerular Filt Rate 142 ml/min (>60); GFR (African American) 172 ML/MIN (>60); Globulin 3.1 g/dL (1.3-3.2); Glucose 92 mg/dl (74-100); Potassium 4.1 mmoL/L (3.5-5.1); Sodium 134 mmol/L (136-145); Total Protein,Serum 6.8 g/dl (6.3-8.2); Uric Acid 4.7 mg/dl (2.5-6.2)
[2025-04-25 13:54] LABS: Microscopic, Urine URINE MICROSCOPIC (MICROSCOPIC)
[2025-04-25 14:00] LABS: Bilirubin,Urine Negative (Negative); Color,Urine YELLOW (Yellow); Glucose,Urine (UA) Negative (Negative); Ketones,Urine Negative (Negative); Leukocyte Esterase,Urine Negative (Negative); PH,Urine 6.0 (5.0-8.5); Protein,Urine Negative (Negative); Specific Gravity, Urine 1.020 (1.005-1.030); Urobilinogen,Urine 0.2 EU/dl (0.2)
[2025-04-25 14:11] LABS: Bacteria,Urine 1+ /lpf; Calcium Oxalate Crystals,Urine 1+ /lpf
[2025-04-25 14:41] LABS: RPR W/RFX Titers Nonreactive (Nonreactive)
--- OUTSIDE RECORDS SUMMARY | 2025-04-25 16:13 | XMS_ITS | Clinical Summary ---
Author Organization [facility] Address [address] [place] [address] Care Team Providers Care Dog Groomer Name Role Phone Provider, No Known Primary [...] ID:[id number] (NAIC) Type:Not on file Address: [address] PPO Member Subscriber Plan / Payer (Ef fective 2023-Present) Name:Vicente Koby Relation to Subscriber:Self Name:Koby Zhang Payer ID:[id number] (NAIC) Type:Not on file Address: [address] [place] [phone] Care Teams Dog Groomer Relationship Specialty Start Date End Date Provider, [place] [address] PCP - General 09/28/21
--- OUTSIDE RECORDS SUMMARY | 2025-04-25 16:13 | XMS_ITS | Encounter Summary ---
Author Organization [employer] ([place], [place], [place]) Address [address] [place] [address] Care Team Providers Care Fulfillment Specialist Name Role Phone Unavailable Primary Care Provider Unavailabl e Reason for Referral * Consultation (Routine) - New Request Specialty Diagnoses / Procedures Referred By Contac t Referred To Contact Behavioral Health / Psychiatry Diagnoses MDD (major depressive disorder), recurrent episode, mild (HCC) Susan Zhang APRN [address] [place] [address] Phone: tel: Referral ID Status Reason Start Date Expiration Date Visits Requested Visits Authorized [id number] New Request Specialty Services Required 05/10/2024 05/10/2025 1 1 Encounter Details Date Type Department Care Team (Late st Contact Info) Description 05/10/[address] [facility] Central Scheduling [address] [place] [address] Susan Zhang APRN [address] [place] [address] MDD (major depressive disorder), recurrent [...] Date Robert rded Speak language other than Scottish at home Not on file 05/10/2024 Want [...]
--- OUTSIDE RECORDS SUMMARY | 2025-04-25 16:13 | XMS_ITS | Referral Summary ---
Author Organization [employer] ([place], [place], [place], [place]) Address [address] [place] [address] Care Team Providers Care Nut Roaster Name Role Phone Unavailable Primary Care Provider [...] Date Robert rded Speak language other than East Timorese at home Not on file 05/10/2024 Want [...]
--- OUTSIDE RECORDS SUMMARY | 2025-04-25 16:13 | XMS_ITS | Encounter Summary ---
Author Organization [employer] ([place], [place], [place], [place]) Address [address] [place] [address] Care Team Providers Care Methods Analyst Name Role Phone Unavailable Primary Care Provider Unavailabl e Encounter Details Date Type Department Care Team (Late st Contact Info) Description 05/10/2024 Outside Orders [facility] Central Scheduling [address] [place] [address] Susan Zhang APRN [address] [place], [place] [id number] Social History Tobacco Use Types Packs/Day Years [...] Date Robert rded Speak language other than Icelandic at home Not on file 05/10/2024 Want [...]
--- OUTSIDE RECORDS SUMMARY | 2025-04-25 16:13 | XMS_ITS | Encounter Summary ---
Author Organization [employer] ([place], [place], [place], [place]) Address [address] [place] [address] Care Team Providers Care Piper Installer Name Role Phone Unavailable Primary Care Provider Unavailabl e Encounter Details Date Type Department Care Team (Late st Contact Info) Description 05/10/2024 Outside Orders [facility] Central Scheduling [address] [place] [address] Susan Zhang APRN [address] [place] [address] MDD (major depressive disorder), recurrent [...] Date Robert rded Speak language other than Nepali at home Not on file 05/10/2024 Want [...]
--- OUTSIDE RECORDS SUMMARY | 2025-04-25 16:13 | XMS_ITS | Clinical Summary ---
Author Organization Healthcare Address [address] [place] [address] Care Team Providers Care Branch Associate Name Role Phone Tatianna Almodovar Primary Care Provider [phone] Family History Medical History Relation Name Comments [...] 2019 [facility]Y-Cervical Cancer Screening 2022 [facility]Y-HPV/Cotest 2022 [id number] Vaccine ( season) 2025 07/10/2021, 12/19/2020, 11/21/2020 [...] Reactive Non Reactive 07/05/2024 4:37 PM EST [facility] Comment:Screening for HIV 1 & 2 antibodies, and P24 antigen is NONREACTIVE. No confirmatory testing is required. Blood Venous blood specimen / Unknown Venipuncture / Unknown 07/05/2024 10:30 AM EST 07/05/2024 10:30 AM EST Tatianna VELOZ LAB BLOOD ORDERABLES Final Resu lt Performing Organization Address [facility] Co de Phone Number [facility] [address] [place] [address] * Hepatitis C antibody (07/05/2024 10:30 AM EST) Hepatitis C Antibody Negative Negative 07/05/2024 5:05 PM EST [facility] Blood Venous blood specimen / Unknown Venipuncture / Unknown 07/05/2024 10:30 AM EST 07/05/2024 10:30 AM EST Tatianna VELOZ LAB BLOOD ORDERABLES Final Resu lt Performing Organization Address City/[facility]/ZIP Co de Phone Number [facility] [address] [place] [address] from Last 3 Months or Most Recently Relevant to Health Maintenance Insurance ANTHEM Care Teams Branch Associate Relationship Specialty Start Date End Date Tatianna Almodovar PA [address] [place] [address] PCP - General 12/26/20
--- OUTSIDE RECORDS SUMMARY | 2025-04-25 16:13 | XMS_ITS | Clinical Summary ---
Author Organization [employer] ([place], [place], [place], [place]) Address [address] [place] [address] Care Team Providers Care Material Hauler Name Role Phone Unavailable Primary Care Provider [...] Date Robert rded Speak language other than Divehi at home Not on file 05/10/2024 Want [...]
== END 2025-04-25 16:35 | disposition home or self-care (01) ==
LOC: OB 16:15 → OBOUT 16:15
PROVIDERS: PCP Physician Assistant; Visit Provider Obstetrics & Gynecology
DX: O60.14X0 Preterm labor third trimester with preterm delivery third trimester, not applicable or unspecified (principal); R03.0 Elevated blood-pressure reading, without diagnosis of hypertension; Z3A.37 37 weeks gestation of pregnancy
CPT/HCPCS: 59025; 80053; 81001; 82570; 83615; 84156; 84550; 85025; 86592; 86850; 99212; G0463

== ENCOUNTER 2025-05-02 13:06 | Inpatient (IN) | payer BC, SELFPAY ==
--- OUTSIDE RECORDS SUMMARY | 2025-05-02 13:10 | XMS_ITS | Referral Summary ---
Author Organization [employer] ([place], [place]) Address [address] [place] [address] Care Team Providers Care Board Design Engineer Name Role Phone Unavailable Primary Care [...] Date Robert rded Speak language other than Equatorial Guinean at home Not on file 05/10/2024 Want [...]
--- OUTSIDE RECORDS SUMMARY | 2025-05-02 13:10 | XMS_ITS | Encounter Summary ---
Author Organization [employer] ([place], [place]) Address [address] [place] [address] Care Team Providers Care Branch General Manager Name Role Phone Unavailable Primary Care Provider Unavailabl e Encounter Details Date Type Department Care Team (Late st Contact Info) Description 05/10/2024 Outside Orders [facility] Central Scheduling [address] [place] [address] Susan Zhang APRN [address] [place] [address] MDD (major depressive disorder), recurrent [...] Date Robert rded Speak language other than Welsh at home Not on file 05/10/2024 Want [...]
--- OUTSIDE RECORDS SUMMARY | 2025-05-02 13:10 | XMS_ITS | Clinical Summary ---
Author Organization [employer] ([place], [place], [place], [place]) Address [address] [place] [address] Care Team Providers Care Sprayer Leather Name Role Phone Unavailable Primary Care Provider [...] Date Robert rded Speak language other than Turkmen at home Not on file 05/10/2024 Want [...]
--- OUTSIDE RECORDS SUMMARY | 2025-05-02 13:10 | XMS_ITS | Clinical Summary ---
Author Organization [facility] Address [address] [place] [address] Care Team Providers Care Blueprint Clerk Name Role Phone Provider, No Known Primary [...] ID:[id number] (NAIC) Type:Not on file Address: [address] PPO Member Subscriber Plan / Payer (Ef fective 2023-Present) Name:Vicente Koby Relation to Subscriber:Self Name:Koby Zhang Payer ID:[id number] (NAIC) Type:Not on file Address: [address] [place] [phone] Care Teams Blueprint Clerk Relationship Specialty Start Date End Date Provider, [place] [address] PCP - General 09/28/21
--- OUTSIDE RECORDS SUMMARY | 2025-05-02 13:10 | XMS_ITS | Encounter Summary ---
Author Organization [employer] ([place], [place], [place], [place]) Address [address] [place] [address] Care Team Providers Care Dynamite Packing Machine Operator Name Role Phone Unavailable Primary Care Provider Unavailabl e Encounter Details Date Type Department Care Team (Late st Contact Info) Description 05/10/2024 Outside Orders [facility] Central Scheduling [address] [place] [address] Susan Zhang APRN [address] [place], [place] [id number] Social History Tobacco Use Types Packs/Day Years [...] Date Robert rded Speak language other than Latvian at home Not on file 05/10/2024 Want [...]
--- OUTSIDE RECORDS SUMMARY | 2025-05-02 13:10 | XMS_ITS | Clinical Summary ---
Author Organization Healthcare Address [address] [place] [address] Care Team Providers Care Finish Mender Name Role Phone Tatianna Almodovar Primary Care Provider [phone] Family History Medical History Relation Name Comments [...] 2019 [facility]Y-Cervical Cancer Screening 2022 UKY-HPV/Cotest 2022 [id number] Vaccine ( season) 2025 07/10/2021, 12/19/2020, 11/21/2020 [...] Reactive Non Reactive 07/05/2024 4:37 PM EST [facility] Comment:Screening for HIV 1 & 2 antibodies, and P24 antigen is NONREACTIVE. No confirmatory testing is required. Blood Venous blood specimen / Unknown Venipuncture / Unknown 07/05/2024 10:30 AM EST 07/05/2024 10:30 AM EST Tatianna VELOZ LAB BLOOD ORDERABLES Final Resu lt Performing Organization Address [facility] Co de Phone Number [facility] [address] [place] [address] * Hepatitis C antibody (07/05/2024 10:30 AM EST) Hepatitis C Antibody Negative Negative 07/05/2024 5:05 PM EST [facility] Blood Venous blood specimen / Unknown Venipuncture / Unknown 07/05/2024 10:30 AM EST 07/05/2024 10:30 AM EST Tatianna VELOZ LAB BLOOD ORDERABLES Final Resu lt Performing Organization Address City/[facility]/ZIP Co de Phone Number [facility] [address] [place] [address] from Last 3 Months or Most Recently Relevant to Health Maintenance Insurance ANTHEM Care Teams Finish Mender Relationship Specialty Start Date End Date Tatianna Almodovar PA [address] [place] [address] PCP - General 12/26/20
--- OUTSIDE RECORDS SUMMARY | 2025-05-02 13:10 | XMS_ITS | Patient Health Record ---
[facility] Address [address] [facility] [address] [place] [id number] Care Team Providers Care Food Truck Caterer Name Role Phone Colette Ojeda Primary Care Provider Reason For Referral No Information Medications Medication SIG (Take, Route, Frequency, Duration) Notes Start Date End Date Status Patti Allergy 180 MG 1 tab(s) orally o nce a day; Duration: 0 01/17/2013 Active Fluticasone Propionate 50 MCG/ACT 1 spray(s) each nostril once a day 12/24/2013 Active Tri-Sprintec 0.18/0.215/0.25 MG-35 MCG 1 tab(s) orally once a day Active Problems Problem Type SNOMED Code ICD Code Onset Dates Problem Status W/U Status Risk Notes Problem Rhinitis (77006311) Rhinitis (472.0) Active confirmed Problem Allergic rhinitis due to allergen (94895901) Allergic rhinitis due to allergen (477.8) Active confirmed Plan Of Treatment No Information Insurance Providers Payer Name Payer Address Payer Phone Subscriber Number Group Number Insured Name Patient Relationship to Insured Coverage Start Date Coverage End Date [facility] [address] [place] [address] [id number] Christine Zhang Self - patient is the insured Medical (General) History Medical History History ICD Code Rheumatoid arthritis
--- OUTSIDE RECORDS SUMMARY | 2025-05-02 13:10 | XMS_ITS | Encounter Summary ---
Author Organization [employer] ([place], [place], [place], [place]) Address [address] [place] [address] Care Team Providers Care Ndt Inspector Name Role Phone Unavailable Primary Care Provider Unavailabl e Reason for Referral * Consultation (Routine) - New Request Specialty Diagnoses / Procedures Referred By Contac t Referred To Contact Behavioral Health / Psychiatry Diagnoses MDD (major depressive disorder), recurrent episode, mild (HCC) Susan Zhang APRN [address] [place] [address] Phone: tel: Referral ID Status Reason Start Date Expiration Date Visits Requested Visits Authorized [id number] New Request Specialty Services Required 05/10/2024 05/10/2025 1 1 Encounter Details Date Type Department Care Team (Late st Contact Info) Description 05/10/2024 Outside Orders [facility] Central Scheduling [address] [place] [address] Susan Zhang APRN [address] [place] [address] MDD (major depressive disorder), recurrent [...]
[2025-05-02 14:19] LABS: Hematocrit 33.8 % (37.0-47.0); Hemoglobin 11.7 g/dL (12.2-16.2); Immature Granulocytes % 1.1 %; Mean Corpuscular HGB Conc 34.6 g/dL (31.8-35.4); Mean Corpuscular Hemoglobin 33.0 pg (27.0-31.2); Mean Corpuscular Volume 95.2 fl (81-99); Nucleated Red Blood Cells % 0 %; Platelet Count 240 K/mm3 (142-424); Red Blood Count 3.55 M/mm3 (4.20-5.40); Red Cell Distribution Width-SD 44.3 fL; White Blood Count 11.7 K/mm3 (4.8-10.8)
[2025-05-02 15:00] LABS: Microscopic, Urine URINE MICROSCOPIC (MICROSCOPIC)
[2025-05-02 15:02] LABS: Bilirubin,Urine Negative (Negative); Color,Urine YELLOW (Yellow); Glucose,Urine (UA) Negative (Negative); Ketones,Urine TRACE (Negative); Leukocyte Esterase,Urine Negative (Negative); PH,Urine 6.0 (5.0-8.5); Protein,Urine Negative (Negative); Specific Gravity, Urine >= 1.030 (1.005-1.030); Urobilinogen,Urine 0.2 EU/dl (0.2)
[2025-05-02 15:12] VITALS: BMI 46.8
[2025-05-02 15:13] VITALS: BP 135/81; PULSE 94; RESP 18; TEMP 36.7; O2SAT 97; BMI 46.8
[2025-05-02 15:30] LABS: Bacteria,Urine 2+ /lpf; Mucus,Urine 2+ /lpf
[2025-05-03] MEDS: BUTORPHANOL TARTRATE 1 MG/ML VIAL IV (04:13)
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
[2025-05-03] MEDS: DEXTROSE 5%-LACTATED RINGERS 1,000 ML 125 ML IV (09:20)
[2025-05-03] MEDS: OXYTOCIN/RINGERS LACTATE 30 UNITS/500 ML BAG IV (09:31)
[2025-05-03 10:43] LABS: RPR W/RFX Titers Nonreactive (Nonreactive)
--- NOTE | 2025-05-03 12:57 | EXP.LABOR.NO ---
Labor Note Subjective: Date: 05/03/25 Time: 12:57 Comment:: Comfortable without epidural. Objective: NST:: Reactive Contractions:: every 4-5 minutes Effacement:: 40% Station: -4 Membranes: intact Fetus: Monitoring?: Yes monitoring type:: External Assessment: Labor progressing?: No Problems: (1) Encounter for elective induction of labor: Category: Medical Code(s): Z34.90 - Encounter for supervision of normal , unspecified, unspecified trimester (2) Maternal obesity affecting , antepartum: Qualifiers: Obesity type affecting : unspecified obesity Qualified Code(s): O99.210 - Obesity complicating , unspecified trimester Category: Medical Code(s): O99.210 - Obesity complicating , unspecified trimester Plan: Plan for ?: Yes Additional information:: No cervical change after Cytotec and Pitocin. Pitocin reached 9. She requests elective primary . Discussed risks, benefits, alternatives, expectations and possible complications of surgery. All questions addressed and answered. She voiced understanding of risks and possible complications. Consent form signed. Proceed with elective primary .
[2025-05-03] MEDS: CITRIC ACID/SODIUM CITRATE ORAL SOLN 30ML UDC 30 ML PO (14:00)
[2025-05-03] MEDS: SODIUM CHLORIDE 0.9% 10ML VIAL 10 ML IV (14:00)
[2025-05-03] MEDS: FAMOTIDINE 20MG/2ML VIAL 20 MG IV (14:00)
[2025-05-03 14:32] VITALS: BP 146/90; PULSE 95; RESP 19; TEMP 36.9; O2SAT 96
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
[2025-05-03] MEDS: LACTATED RINGERS 1000ML 1,000 ML 500 ML IV (15:16)
[2025-05-03 18:45] VITALS: BP 103/59; PULSE 68; RESP 16; TEMP 36.4; O2SAT 98
--- NOTE | 2025-05-03 18:52 | P.OP_ITS ---
Date of procedure: 05/03/25 Pre-op Diagnosis:: 1. IUP at 39w0d 2. Maternal obesity 3. Elective section Post-op Diagnosis:: 1. IUP at 39w0d 2. Maternal obesity 3. Elective section Procedure performed:: Elective primary low transverse section Surgeon:: Daphne William DO Nursing Staffing Coordinator(s):: Brian Bowser MD FINANCIAL SECRETARY:: Donell Valentine Anesthesia: spinal Estimated blood loss (mL): 600 Clinical Note:: Ms Koby Zhang is a 35 yo at 39w0d who presents to [facility] L[facility]D for elective induction of labor. She has had good care. complicated by maternal obesity. History of genital HSV-2. No outbreak for the past 2 years. She takes Valtrex for suppression. GBS negative. No cervical change after Cytotec 50 mcg PV x 3 doses and Pitocin. Pitocin reached 9. She declined two day induction of labor and requested elective primary . Discussed risks, benefits, alternatives, expectations and possible complications of surgery. All questions addressed and answered. She voiced understanding of risks and possible complications. Consent form signed. Operative findings:: 1. Live female baby, Camille, weighing 7 lb 14 oz. Apgars 8 (1 min), 9 (5 min) 2. Grossly normal appearing uterus, bilateral fallopian tubes and ovaries 3. Appendix visualized and appeared normal Operative note:: The risks, benefits and alternatives of the procedure were reviewed with the patient. Informed consent was obtained. Patient was taken to the operating room where spinal anesthesia was placed. The patient received 2 grams of Ancef preoperatively. She was placed in dorsal supine position with a leftward tilt. SCDs in place. So catheter was inserted and draining clear urine prior to the start of the procedure. heart tones were obtained. Patient was then prepped and draped in normal sterile fashion. Allis clamp test was performed to ensure adequate anesthesia. A Pfannenstiel skin incision was made 2 cm above pubic symphysis. This was carried through to underlying layer of fascia. Fascia was incised in midline, extended laterally with Gonsales scissors. Superior aspect of fascial incision was grasped with two Valorie clamps, elevated up, and rectus muscle dissected off bluntly and sharply with Gonsales scissors. Inferior aspect of fascial incision was grasped with two Valorie clamps, elevated up, and rectus muscle dissected off bluntly and sharply with Gonsales scissors. The rectus muscle was then in the midline and the peritoneum was entered bluntly with a digit. Peritoneal incision was then extended superiorly and inferiorly with good visualization of the bladder. Duran retractor was inserted. The lower uterine segment was incised in a transverse fashion. Clear amniotic fluid was noted. Head was delivered without difficulty. Remainder of body was delivered without difficulty. Mouth and nares were bulb suctioned. Spontaneous cry was noted. Delayed cord clamping was performed for 60 seconds. The umbilical cord was clamped and cut. The was handed to awaiting pediatric staff in stable condition. Dr. Jimenez was present. Apgars were 8(1 min), 9(5 min). Cord blood was obtained. Gentle traction on the umbilical cord and uterine fundal massage delivered the placenta. Placenta was intact. Calcifications on the placenta were seen. Uterus was cleared of all clots and debris with a moist laparotomy sponge. Corners of the uterine incision were grasped with Allis clamps. The uterine incision was reapproximated with # 1 Vicryl suture in a running, locked stitch. Second layer of the same stitch was used to imbricate the incision. Vesicouterine peritoneum was reapproximated in a running locked stitch with 2-0 Vicryl suture. Hemostasis was noted. Posterior cul-de-sac was cleaned with moist laparotomy sponge. Gutters cleared of all clots and debris with a moist laparotomy sponge. Reinspection of the lower uterine segment demonstrated hemostasis. At this point all instruments and sponges were removed from the pelvis.? The peritoneum was grasped with Meghan clamps x 3. The peritoneum was reapproximated with 0 Vicryl suture in a running stitch. The corners of the fa scia were grasped with Valorie clamps, and the fascia was reapproximated with two # 1 Vicryl suture overlapped to the right of midline. Subcutaneous tissue was irrigated with clear return of fluids. The subcutaneous tissue was reapproximated with 3-0 Vicryl. The skin was reapproximated with Insorb mckay. Steri strips and Telfa was placed over closed Pfannenstiel skin incision. At the end of the procedure, the uterus was firm with minimal vaginal bleeding. Patient tolerated the procedure well. Instrument, sponges and needle counts were correct x 2. Mom and baby were transported to recovery room in stable condition. Condition: stable Disposition: floor Specimens:: 1. Cord blood Complications:: None
[2025-05-03 18:55] VITALS: BP 110/73; PULSE 70; RESP 16; TEMP 36.4; O2SAT 98
--- NOTE | 2025-05-03 18:56 | EXP.ANES.I ---
[facility] Anesthesia Record Part I Anesthesia Record I Intake, IV Amount: 1,000 Hydration: Adequate Estimated blood loss (mL): 600 Urine output (mL): 100 Blood Products used (#): none Blood Pressure: 103/59 SaO2: 99 Pulse Rate: 66 Airway Patency: Patent Respiratory Rate: 16 Temperature: 97.6 F Patient is:: Awake and Stable Stable to PACU at:: 18:45
[2025-05-03 18:57] VITALS: BP 103/59; PULSE 66; RESP 16; TEMP 36.4; O2SAT 99
[2025-05-03 19:05] VITALS: BP 149/71; PULSE 70; RESP 16; TEMP 36.4; O2SAT 98
[2025-05-03 19:13] LABS: Microscopic,Cath URINE MICROSCOPIC (MICROSCOPIC)
[2025-05-03 19:15] VITALS: BP 138/84; PULSE 68; RESP 16; TEMP 36.4; O2SAT 98
[2025-05-03 19:22] LABS: Appearance,Urine/Cath CLEAR (Clear); Bilirubin,Cath Negative (Negative); Blood, Urine/Cath Negative (Negative); Color,Urine/Cath YELLOW (Yellow); Glucose,Urine/Cath (UA) Negative (Negative); Ketones,Urine/Cath TRACE (Negative); Leukocyte Esterase,Cath Negative (Negative); Nitrate,Cath Negative (Negative); PH,Urine/Cath 7.0 (5.0-8.5); Protein,Urine/Cath 1+ (Negative); Specific Gravity, Urine/Cath 1.020 (1.005-1.030); Urobilinogen,Cath 0.2 EU/dl (0.2)
[2025-05-03] MEDS: ACETAMINOPHEN 500MG TAB 1000 MG PO (19:42)
[2025-05-03 19:43] LABS: Squamous Epithelial Ur./Cath Occasional #/hpf (0-5); WBC,Urine/Cath Occasional #/hpf (0-3)
[2025-05-03] MEDS: OXYTOCIN/RINGERS LACTATE 30 UNITS/500 ML BAG 999 UNITS IV (19:43)
[2025-05-03] MEDS: OXYCODONE 5MG IMMEDIATE RELEASE TABLET 5 MG PO (21:01)
[2025-05-04] MEDS: KETOROLAC 30MG/ML VIAL 30 MG IV ×3 (00:05→11:33)
[2025-05-04] MEDS: OXYCODONE 5MG IMMEDIATE RELEASE TABLET 5 MG PO ×6 (02:06→22:24)
[2025-05-04] MEDS: ACETAMINOPHEN 500MG TAB 1000 MG PO ×4 (02:06→19:45)
[2025-05-04 07:26] LABS: Hematocrit 30.1 % (37.0-47.0); Hemoglobin 10.2 g/dL (12.2-16.2); Immature Granulocytes % 1.0 %; Mean Corpuscular HGB Conc 33.9 g/dL (31.8-35.4); Mean Corpuscular Hemoglobin 32.8 pg (27.0-31.2); Mean Corpuscular Volume 96.8 fl (81-99); Nucleated Red Blood Cells % 0 %; Platelet Count 188 K/mm3 (142-424); Red Blood Count 3.11 M/mm3 (4.20-5.40); Red Cell Distribution Width-SD 45.5 fL; White Blood Count 11.2 K/mm3 (4.8-10.8)
[2025-05-04] MEDS: SENNA 8.6MG TABLET 8.6 MG PO ×2 (08:14→22:24)
[2025-05-04] MEDS: SIMETHICONE 80MG CHEWABLE TABLET 160 MG PO ×3 (08:14→22:24)
[2025-05-04 08:18] VITALS: BP 110/67; PULSE 76; RESP 16; TEMP 36.7; O2SAT 97
--- NOTE | 2025-05-04 09:40 | P.PNANES_ITS ---
[facility] Anesthesia Record Part II Anesthesia Record Part II Discharge Time: 19:15 Destination: Obstetric PACU nurse assessment reviewed?: Yes Patient Condition:: Good Anesthesia Complications:: None Swallowing reflex intact?: Yes Airway Patency: Patent Cyanosis?: No Blood Pressure: 138/84 SaO2: 98 Respiratory Rate: 16 Pulse Rate: 68 Temperature: 97.6 F Mental Status: Alert & Oriented Pain level:: 0 Nausea and/or vomitting:: None Intake, IV Amount: 0 Hydration: Adequate
[2025-05-04 09:41] VITALS: BP 138/84; PULSE 68; RESP 16; TEMP 36.4; O2SAT 98
--- NOTE | 2025-05-04 13:03 | P.PN_ITS ---
Subjective *Date: 05/04/25 *Time: 13:03 Interval history: POD # 1 s/p PLTCS Feeling well. Pain controlled. Formula feeding. Lochia is appropriate. Voiding without difficulty and passing flatus. Tolerating regular diet. Denies fever/chills, chest pain and shortness of breath. No headaches, vision changes, lightheadedness/dizziness. She admits to lower extremity swelling. No calf pain. Ambulating well ad hetal. Medical Exam Vital signs and Labs for Last 24 Hours: Vital Signs Temp Pulse Pulse Resp BP BP Pulse Ox 05/04/25 09:41 16 05/04/25 08:18 98.1 F 76 16 110/67 97 05/03/25 19:15 97.6 F 68 16 138/84 98 05/03/25 19:05 97.6 F 70 16 149/71 H 98 05/03/25 18:57 97.6 F 66 16 103/59 L 05/03/25 18:55 97.6 F 70 16 110/73 98 05/03/25 18:45 97.6 F 68 16 103/59 L 98 05/03/25 14:32 98.4 F 95 H 19 146/90 H 96 O2 Del Method 05/04/25 09:41 05/04/25 08:18 Room Air 05/03/25 19:15 Room Air 05/03/25 19:05 Room Air 05/03/25 18:57 05/03/25 18:55 Room Air 05/03/25 18:45 Room Air 05/03/25 14:32 Room Air Intake and Output 05/03/25 05/04/25 05/04/25 23:59 07:59 15:59 Intake Total 2600 / 3328.383 100 / 200 100 / 200 Balance 2600 / 3328.383 100 / 200 100 / 200 Intake: Intake, Total IV Amount 2600 / 3328.383 100 / 200 100 / 200 Cefazolin Sodium 2 gm In 0.9 % 100 / 100 Sodium Chloride 100 ml @ 200 mls/hr IV ONCE ONE Rx#:[id number] Cefazolin Sodium 2 gm In 0.9 % 100 / 100 Sodium Chloride 100 ml @ 200 mls/hr IV PREOP ONE Rx#: [id number] Cefazolin Sodium 2 gm In 0.9 % 100 / 100 Sodium Chloride 100 ml @ 200 mls/hr IV Q8H [place] Rx#:[id number] Lactated Ringers 1000ML 1,000 1000 / 1000 ml @ 500 mls/hr IV .Q2H [facility] Rx# :[id number] Oxytocin/Ringers Lactate 30 500 / 500 units In 500 ml @ 40 mls/hr IV .[id number] [place] Rx#:[id number] Laboratory Results - last 24 hr 05/03/25 17:10: Urine Color Yellow, Urine Appearance Clear, Urine pH 7.0, Ur Specific [place] 1.020, Urine Protein 1+, Urine Glucose (UA) Negative, Urine Ketones Trace, Urine Blood Negative, Urine Nitrate Negative, Urine Bilirubin Negative, Urine Urobilinogen 0.2, Ur Leukocyte Esterase Negative, Urine RBC None, Urine WBC Occasional, Ur Squamous Epith Cells Occasional, Urine Bacteria None 05/04/25 07:11: WBC 11.2 H, RBC 3.11 L, Hgb 10.2 L, Hct 30.1 L, MCV 96.8, MCH 32.8 H, MCHC 33.9, RDW 13.2, Plt Count 188, MPV 10.6 H, Neut % (Auto) 78.6, Lymph % (Auto) 14.2, [place] % (Auto) 5.6, Eos % (Auto) 0.3, Baso % (Auto) 0.3, Neut # (Auto) 8.8 H, Lymph # (Auto) 1.6, [place] # (Auto) 0.6, Eos # (Auto) 0.0, Baso # (Auto) 0.0 I & O for Labs for Last 24 Hours: Intake & Output 05/01/25 05/02/25 05/03/25 05/04/25 23:59 23:59 23:59 23:59 Intake Total 3328.383 / 3328.383 200 / 200 Balance 3328.383 / 3328.383 200 / 200 Weight 273 lb Microbiology Reports for the Last 24 Hours: Microbiology 05/02/25 13:15 Urine,Clean Catch Urine Culture - Final Multiple organisms, suggests contamination. Head: Present atraumatic and normocephalic ENT: Present normal exam Neck: Present full ROM Respiratory: Present CTA bilaterally and normal respiratory effort Cardiac: Present Reg Rate and Rhythm GI: Present soft; Absent tenderness Comments:: Pfannenstiel incision clean/dry/intact with steri strips in place Rectal (female): Present deferred (female): Present deferred Extremities: Present full ROM and edema (+2 bilateral lower extremity edema); Absent calf tenderness Neuro: Present alert, awake and moves all extremities Assessment and Plan *Assessment and plan (1) Delivery by elective section: Status: Acute Category: Medical Code(s): O82 - Encounter for delivery without indication (2) Encounter for elective induction of labor: Status: Acute Category: Medical Code(s): Z34.90 - Encounter for supervision of normal , unspecified, unspecified trimester (3) Maternal obesity affecting , antepartum: Status: Acute Qualifiers: Obesity type affecting : unspecified obesity Qualified Code(s): O99.210 - Obesity complicating , unspecified trimester Category: Medical Code(s): O99.210 - Obesity complicating , unspecified trimester (4) Mood disorder: Problem Comment: she thinks she has ADD. sending for testing Status: Acute Category: Medical Code(s): F39 - Unspecified mood [affective] disorder (5) Genital HSV: Status: Acute Qualifiers: Herpes simplex infection site: unspecified Qualified Code(s): A60.00 - Herpesviral infection of urogenital system, unspecified Category: Medical Code(s): A60.00 - Herpesviral infection of urogenital system, unspecified (6) Acute blood loss anemia: Status: Acute Category: Medical Code(s): D62 - Acute posthemorrhagic anemia Plan Continue routine care Encouraged increased ambulation AM Hgb 10.2. Continue PO ferrous sulfate Plan d/c home tomorrow, POD # 2
[2025-05-04 16:13] VITALS: BP 116/68; PULSE 83; RESP 15; TEMP 36.6; O2SAT 97
[2025-05-04] MEDS: PRENATAL MULTIVITAMIN W/IRON 1 EACH PO (17:23)
[2025-05-04] MEDS: IBUPROFEN 400 MG TABLET 800 MG PO (18:20)
[2025-05-05] MEDS: ACETAMINOPHEN 500MG TAB 1000 MG PO ×2 (01:36→07:54)
[2025-05-05] MEDS: IBUPROFEN 400 MG TABLET 800 MG PO ×2 (01:37→09:11)
[2025-05-05] MEDS: SIMETHICONE 80MG CHEWABLE TABLET 160 MG PO ×2 (02:18→06:05)
[2025-05-05] MEDS: OXYCODONE 5MG IMMEDIATE RELEASE TABLET 5 MG PO ×3 (02:18→09:56)
[2025-05-05 07:59] VITALS: BP 114/56; PULSE 72; RESP 16; TEMP 36.8; O2SAT 99
[2025-05-05] MEDS: SENNA 8.6MG TABLET 8.6 MG PO (10:48)
--- NOTE | 2025-05-05 11:32 | P.DS_ITS ---
General Admission date:: 05/02/25 Discharge date: 05/05/25 HPI HPI HPI: POD # 2 s/p PLTCS Feeling well. Pain controlled. Formula feeding. Lochia is appropriate. Voiding without difficulty and passing flatus. Tolerating regular diet. Denies fever/chills, chest pain and shortness of breath. No headaches, vision changes, lightheadedness/dizziness. She admits to lower extremity swelling. No calf pain. Ambulating well ad hetal. Hospital Course Hospital Course Hospital Course: Ms Koby Zhang is a 35 yo at 39w0d who presents to [facility] [place] [facility] for elective induction of labor. She has had good care. complicated by maternal obesity. History of genital HSV-2. No outbreak for the past 2 years. She takes Valtrex for suppression. GBS negative. No cervical change after Cytotec 50 mcg PV x 3 doses and Pitocin. Pitocin reached 9. She declined two day induction of labor and requested elective primary . She underwent elective primary on 05/03/25. She delivered a live female baby, Camille, weighing 7 lb 14 oz. Apgars 8 (1 min), 9 (5 min). EBL 600 mL. She did well /postoperatively. Pain controlled. Formula feeding. Light lochia. Voiding without difficulty and passing flatus. Tolerating regular diet. Denies fever/chills, chest pain and shortness of breath. No headaches, dizziness/lightheadedness or vision changes. Vital signs stable, afebrile. Heart regular rate and rhythm. Lungs clear to auscultation. Abdomen soft, nontender. She had +2 bilateral lower extremity swelling. No calf tenderness to palpation. Ambulating well ad hetal. Normal hospital course. She was discharged to home on POD # 2 with instructions to follow-up in the office in 2 weeks or sooner if needed. Exam Data for Last 24 hours Vital signs and Labs for Last 24 Hours: Temp Pulse Resp BP Pulse Ox O2 Del Method 98.2 F 72 16 114/56 L 99 Room Air 05/05/25 07:59 05/05/25 07:59 05/05/25 07:59 05/05/25 07:59 05/05/25 07:59 05/05/25 07:59 I & O for Last 24 hours: Intake & Output 05/02/25 05/03/25 05/04/25 05/05/25 23:59 23:59 23:59 23:59 Intake Total 3328.383 / 3328.383 200 / 200 Balance 3328.383 / 3328.383 200 / 200 Weight 273 lb Constitutional Constitutional: no acute distress and cooperative *Routine HEENT Exam Head: Present normocephalic and atraumatic Eye: Absent conjunctivae pink ENT: Present mucous membranes moist *Routine Neck Exam Neck: Present full ROM *Routine Respiratory Exam Respiratory: Present CTA bilaterally and normal respiratory effort *Routine Cardiovascular Exam Cardiovascular: Present RRR *Routine Abdominal Exam Abdominal: Present soft and normoactive bowel sounds; Absent tenderness or distended Comments: Pfannenstiel incision clean/dry/intact with steri strips in place *Routine Rectal Exam Patient deferred: visual exam *Routine Exam Patient deferred: external exam *Routine Extremities Exam Extremities: Present edema (+2 bilateral lower extremity edema) and full ROM; Absent calf tenderness *Routine Neurological Exam Neurological: Present alert, moving all extremities and normal speech Routine Psychiatric Exam Psychiatric: Present normal affect and cooperative DS: Diagnosis Discharge Diagnosis (1) Delivery by elective section: Status: Acute Code(s): O82 - Encounter for delivery without indication (2) Encounter for elective induction of labor: Status: Acute Code(s): Z34.90 - Encounter for supervision of normal , unspecified, unspecified trimester (3) Maternal obesity affecting , antepartum: Status: Acute Code(s): O99.210 - Obesity complicating , unspecified trimester Qualifiers: Obesity type affecting : unspecified obesity Qualified Code(s): O99.210 - Obesity complicating , unspecified trimester (4) Mood disorder: Status: Acute Code(s): F39 - Unspecified mood [affective] disorder Problem details: she thinks she has ADD. sending for testing (5) Genital HSV: Status: Acute Code(s): A60.00 - Herpesviral infection of urogenital system, unspecified Qualifiers: Herpes simplex infection site: unspecified Qualified Code(s): A60.00 - Herpesviral infection of urogenital system, unspecified (6) Acute blood loss anemia: Status: Acute Code(s): D62 - Acute posthemorrhagic anemia Meds Home Medications and Allergies Home Medications ?Medication ?Instructions ?Recorded ?Confirmed ?Type ferrous sulfate 325 mg (65 mg 325 mg PO DAILY #30 tabs 12/26/24 05/03/25 Rx iron) tablet valacyclovir 1 gram tablet 1,000 mg PO BID #60 tabs 05/03/25 Rx cetirizine 10 mg tablet 10 mg PO DAILY 04/25/2504/15 History famotidine 20 mg tablet 20 mg PO DAILY 04/25/2504/15 History montelukast 10 mg tablet 10 mg PO HS allergies 05/03/25 History ondansetron 4 mg disintegrating 4 mg PO Q6HP PRN Nause a And 04/25/25 05/03/25 History tablet Vomiting ibuprofen 800 mg tablet 800 mg PO Q8H PRN pain #20 t abs 05/04/25 Rx oxycodone 5 mg tablet 5 mg PO Q4HP PRN Moderate Pa in 05/04/25 Rx (4-6) #20 tabs New Prescriptions to Start Prescriptions: ibuprofen Daphne William oxycodone Daphne William Allergies Allergy/AdvReac Type Severity Reaction Status Date / Time No Known Allergies Allergy Verified 04/29/25 14:07 Discharge Plan Disposition Patient Disposition: Home, Self-Care Condition: Good Discharge Order Discharge Orders: Discharge Order (Routine); Ordered 05/05/25 Ordered By: Daphne William Follow up Plan Follow up with: Daphne William DO [Staff Physician, [employer]] - 2 weeks Prescriptions/Medication Reconciliation: New oxycodone 5 mg Tablet 5 mg PO Q4HP PRN (Reason: Moderate Pain (4-6)) Qty: 20 0RF ibuprofen 800 mg tablet 800 mg PO Q8H PRN (Reason: pain) Qty: 20 0RF Continued valacyclovir 1 gram tablet 1,000 mg PO BID Qty: 60 0RF Rx Instructions: Patient is to start medication BID at 36weeks ferrous sulfate 325 mg (65 mg iron) tablet 325 mg PO DAILY Qty: 30 11RF cetirizine 10 mg tablet 10 mg PO DAILY famotidine 20 mg tablet 20 mg PO DAILY montelukast 10 mg tablet 10 mg PO HS ondansetron 4 mg tablet,disintegrating 4 mg PO Q6HP PRN (Reason: Nausea And Vomiting) Problem Reconciliation Problems Reviewed?: Yes Patient Discharge Instructions ACTIVITY: Limited activity DIET: continue same diet and regular diet Additional Instructions: Discharge: 1. Take 800 mg Ibuprofen every 8 hours as needed for pain. You can also take 500-1000 mg of Tylenol in between doses, every 6-8 hours. If pain persists you can take Oxycodone 5 mg, 1 tablet every 4-6 hours or more as needed. 2. Nothing in the vagina for 6 weeks - no intercourse, douching or tampons. No tub baths/hot tubs or swimming pools - Drink plenty of fluids. - No strenuous activity. - No driving for 1 week - Don't lift anything heavier than your in pumpkin seat 3. Reasons to return to L&D or call On-Call doctor - fever (greater than 100.4) - heavy vaginal bleeding (soaking through 1 pad in less than 2 hours) - vaginal discharge (malodorous and/or purulent) - severe headaches not resolved by medication or rest 4. depression/blues - Normal to feel anxious/overwhelmed for first 2 weeks - Talk to your doctor if: severe anxiety, trouble bonding with baby, withdrawing from other family members, thoughts of harming yourself or others Patient Instructions: Depression, Hemorrhage, DI for , DI for Pre-eclampsia, Catheter-Associated Urinary Tract Infection, [facility] Post Discharge Instructions Print Language: Indonesian Providers Primary Care Provider: Tatianna Almodovar Admit Provider: Lisa Santiago Attending Provider: Lisa Santiago
== END 2025-05-05 12:35 | disposition home or self-care (01) | DRG 787 ==
PROVIDERS: Obstetrics & Gynecology; Admitting Provider Obstetrics & Gynecology; PCP Physician Assistant; Visit Provider Obstetrics & Gynecology
PROC: 10D00Z1 Extraction of Products of Conception, Low, Open Approach (ICD-10-PCS; CPT 59514; principal; 2025-05-03 15:25)
DX: O99.214 Obesity complicating childbirth (principal); D62 Acute posthemorrhagic anemia; O98.52 Other viral diseases complicating childbirth; Z3A.39 39 weeks gestation of pregnancy; Z37.0 Single live birth; A60.00 Herpesviral infection of urogenital system, unspecified; O99.344 Other mental disorders complicating childbirth; F39 Unspecified mood [affective] disorder; O90.81 Anemia of the puerperium; O61.0 Failed medical induction of labor; Z79.899 Other long term (current) drug therapy; Z23 Encounter for immunization
CPT/HCPCS: 36415; 59025; 81001; 85025; 86592; 86850; 87086; J0595; J0690; J1885; J7120; J7121